=== PATIENT | female | born 1965 | race Caucasian/White ===

== ENCOUNTER 2025-07-06 06:25 | Day surgery (SDC) | payer OTHER, SELFPAY ==
[2025-07-06] VITALS (12 sets, daily range): BP systolic 107–145; BP diastolic 48–73; BMI 28.8
[2025-07-06] MEDS: LOW STRENGTH ASPIRIN 81 MG PO (07:22)
[2025-07-06] MEDS: NSS 236 ML IV (07:25)
--- NOTE | 2025-07-06 08:33 | ITS.CL.CATH ---
[employer] - Catheterization
Cardiac Catheterization
Procedure Report:
LEFT AND RIGHT HEART CATHETERIZATION
Date of Procedure: July 06, 2025
Referring: Festus Bingham MD
PROCEDURES:
1. Left heart catheterization, coronary angiogram.
2. Right heart catheterization
3. Moderate sedation.
INDICATION: Being worked up for ascending aortic repair
ACCESS: 1. We attempted right radial artery access however this was not successful. We then obtained right common femoral arterial access, 6 Canadian sheath, under ultrasound guidance using a micropuncture kit.
2. Right brachial vein, 6 Canadian sheath
HEMODYNAMICS : (mmHg)
RA (m) : 10
RV (s/d,m) : 42/6, 15
PA (s/d, m) : 42/18, 20
PCWP (m) : 17 with V waves up to 25
PA saturation: 70.0% on room air
AO saturation: 93.4% on room air
RA saturation: 69.4% on room air
Cardiac Output : 6.77 L/min by Dale calculation
Cardiac Index : 3.64 L/min/m-2 by Dale calculation
Systemic vascular resistance: 1099 dsc^(-5)
Pulmonary vascular resistance: 1.48 cobos unit
AO (s/d) : 140/69
LVEDP : 25
Invasive transaortic mean gradient of 31.4 mmHg with aortic valve area 1.25cm2 consistent with moderate aortic stenosis.
CORONARY FINDINGS
Dominance: Right
Left Main Trunk (LMT): Large caliber vessel that gives rise to the LAD and LCx branches and is free of angiographic disease.
Left Anterior Descending Artery (LAD): Large caliber vessel that gives off 1 major diagonal branch as it courses along the anterior inter-ventricular groove before wrapping around the cardiac apex. The LAD and its branches are free of angiographic
disease.
Left Circumflex Artery (LCx): Large caliber vessel that gives off 2 major obtuse marginal (OM) branches as it courses along the atrio-ventricular (AV) groove. The LCx and its branches are free of angiographic disease.
Right Coronary Artery (RCA): Large caliber dominant vessel that gives rise to the posterior descending artery (RPDA) and postero-lateral ventricular (RPLV) branches distally. The RCA and its branches are free of angiographic disease.
Femoral angiography: Femoral arteriotomy is noted to be above the bifurcation and below the inferior epigastric artery. There is minimal luminal irregularities in the visualized external iliac and femoral vessels.
SEDATION: 37 minutes of procedural sedation was utilized. IV Midazolam and IV Fentanyl were administered. An independent medical staff manager was present to assist with and help manage the patient's level of consciousness and physiologic status.
RADIATION SUMMARY: Fluoro Time (min): 5.7, Dose (mGy): 203.59, DAP (Gy.cm2) : 17
Closure Device: 6 Canadian Angio-Seal over the right common femoral arterial access with successful hemostasis. Manual pressure was held over the right brachial venous access site with successful hemostasis.
CONCLUSIONS
1. No obstructive coronary artery disease.
2. Mildly elevated right and left-sided filling pressures with normal cardiac output.
3. Invasive transaortic mean gradient of 31.4 mmHg with aortic valve area 1.25cm2 consistent with moderate aortic stenosis.
RECOMMENDATIONS
1. Bedrest per protocol.
2. Continue aggressive medical therapy and risk factor modification for secondary CAD prevention.
3. Hydrate with normal saline to mitigate the risk of contrast-induced acute kidney injury.
4. Follow-up with Drs. Mcghee and Zachery
Vivien Fierro MD, [facility]LY [facility], [facility]
Copy to: Festus Bingham MD and Philip Mcghee MD
[2025-07-06] MEDS: NSS 360 IV (10:52)
== END 2025-07-06 14:04 | disposition home or self-care (01) ==
LOC: CATH 06:25
PROVIDERS: ATTENDING PHYSICIAN Internal Medicine Interventional Cardiology; OTHER PHYSICIAN Internal Medicine Cardiovascular Disease
DX: I35.0 Nonrheumatic aortic (valve) stenosis (principal); I71.40 Abdominal aortic aneurysm, without rupture, unspecified; E78.5 Hyperlipidemia, unspecified; K21.9 Gastro-esophageal reflux disease without esophagitis; L93.0 Discoid lupus erythematosus; I48.0 Paroxysmal atrial fibrillation; F41.9 Anxiety disorder, unspecified
CPT/HCPCS: 93005; 93460; 99152; 99153; C1760; C1894; Q9967

== ENCOUNTER 2025-09-10 04:55 | Inpatient (IN) | payer OTHER, SELFPAY ==
[2025-08-31 12:50] LABS: Hematocrit 36.6 % (37.0-47.0); Hemoglobin 12.5 g/dL (12.0-16.0); Mean Corp Hgb Conc. 34.2 g/dL (33.0-37.0); Mean Corpuscular Volume 92.0 fL (81.0-99.0); Nucleated Red Blood Cells % 0 %; Platelet Count 220 10^3/uL (130-400); Red Cell Dist. Width 12.8 % (11.5-14.5)
[2025-08-31 13:00] LABS: Urine Character Clear (Clear)
[2025-08-31 13:04] LABS: INR 0.93; PT 12.8 Sec (11.4-14.6)
[2025-08-31 13:29] LABS: ALT (SGPT) 35 U/L (0-35); AST (SGOT) 40 U/L (14-36); Albumin 4.2 g/dl (3.5-5.0); Alkaline Phosphatase 92 U/L (38-126); Blood Urea Nitrogen 14 mg/dl (7-17); Calcium 9.3 mg/dl (8.4-10.2); Carbon Dioxide 30 mmol/L (22-30); Chloride 100 mmol/L (98-107); Glucose 85 mg/dl (70-99); Potassium 4.4 mmol/L (3.5-5.1); Sodium 136 mmol/L (135-145); Total Protein 6.5 g/dl (6.3-8.2); eGFR > 60.00
[2025-08-31 13:45] LABS: Glycohemoglobin (HgbA1c) 5.2 % (4.0-5.9)
[2025-08-31 13:46] LABS: Urine Squamous Cell 0-2 /LPF (Few)
[2025-08-31 13:47] LABS: Urine Red Blood Cell 0-2 /HPF (0-2); Urine White Cell 0-2 /HPF (0-5)
--- NOTE | 2025-08-31 14:26 | CM ---
Met with and Mrs. Rizo in [facility]. She states prior to admission she resides with her spouse in a two story home. She states has a full bathroom and bedroom on both levels. She states prior to admission she was independent with ambulation and
adls. She states she does not have any DME in the home. She states she has a prescription plan and uses mail order and [facility] when needed. Her spouse states he will be home to assist in her care if needed. The discharge plan is to return
home with her spouse and a home visit by the Transitional Care Nurse.
We reviewed pre-op and post-op routine. We reviewed the shower instructions. SHe has the soap, written instructions and the Cardiothoracic Surgery Educational Booklet. We also reviewed restrictions including sternal precautions and driving
restriction. We discussed a home visit by the Transitional Care Nor. We also discussed VNA Services if they are out the catchment area for the Transitional Care Nurse. She has selected [facility] if needed. The plan is for AVR on Wednesday,
September 10, 2025.
[2025-09-10] VITALS (15 sets, daily range): BP systolic 52–122; BP diastolic 33–75; BMI 28.9
[2025-09-10] MEDS: MAGNESIUM OXIDE 400 MG PO (05:25)
[2025-09-10] MEDS: PROTONIX 40 MG PO (05:25)
[2025-09-10] MEDS: BACTROBAN 2% OINTMENT 1 APPLIC NASAL ×2 (05:26→20:58)
--- NOTE | 2025-09-10 05:32 | PTCARENOTE ---
Patient admitted to CVICU. Admission questions asked. Vital signs obtained. Patient clipped and washed w/ CHG wipes. Medication reconciliation performed. Patient states she only takes 12.5mg metoprolol at home once per day. Medications
administered. Patients HR 58 CT SARA La aware. 12.5mg metoprolol ordered to be given instead of 25mg per CT SARA La. Awaiting CVOR.
[2025-09-10] MEDS: LOPRESSOR 12.5 MG PO (05:40)
--- NOTE | 2025-09-10 06:07 | W.CVOR.SURPR ---
CVOR Surgeon Immed Pre Op
-
I have examined this patient prior to performance of the scheduled procedure.
The patient's condition is unchanged from the time of the dictated/written History and
Physical and the patient is able to undergo the scheduled procedure.
[2025-09-10 07:44] LABS: ACT+ - POC 109 Seconds (82-134)
[2025-09-10 08:07] LABS: Urine Character Slightly Cloudy (Clear)
[2025-09-10 08:53] LABS: Urine Squamous Cell 0-2 /LPF (Few)
[2025-09-10 08:54] LABS: Urine Red Blood Cell 0-2 /HPF (0-2)
[2025-09-10 08:59] LABS: ACT+ - POC 842 Seconds (82-134)
--- NOTE | 2025-09-10 09:04 | CM ---
Reviewed chart. Mr. Barrett is in the operating room today. Prior to admission she resides with her spouse in a two story home. She has a full bathroom and bedroom on both levels. Prior to admission she was independent with ambulation and adls.
She does not have any DME in the home. She has a prescription plan and uses mail order and [facility] when needed. Her spouse states he will be home to assist in her care if needed. The discharge plan is to return home with her spouse and a home
visit by the Transitional Care Nurse.
[2025-09-10 09:27] LABS: B.E. - POC -1.5 mmol/L; Glucose - POC 99 mg/dl (70-99); HCO3 - POC 22 mmol/L (21-28); Hematocrit - POC 26 % PCV (37-47); Hemodilution- POC No; Hemoglobin Calculated - POC 9.0; Ionized Calcium - POC 1.15 mmol/L (1.15-1.33); Lactate - POC 0.51 mmol/L (0.36-0.75); O2 Saturation %Calculated-POC 99.8 % (94-98); PCO2 - POC 32 mmHg (35-48); PO2 - POC 231 mmHg (83-108); POC Comment PRE; Potassium - POC 3.8 mmol/L (3.5-5.1); Sodium - POC 133 mmol/L (136-145); Specimen Type - POC Arterial; pH - POC 7.45 (7.35-7.45)
[2025-09-10 09:47] LABS: ACT+ - POC 861 Seconds (82-134)
[2025-09-10 10:26] LABS: ACT+ - POC 757 Seconds (82-134)
[2025-09-10 10:32] LABS: B.E. - POC 1.8 mmol/L; Glucose - POC 84 mg/dl (70-99); HCO3 - POC 26 mmol/L (21-28); Hematocrit - POC 22 % PCV (37-47); Hemodilution- POC Yes; Hemoglobin Calculated - POC 7.6; Ionized Calcium - POC 0.97 mmol/L (1.15-1.33); Lactate - POC 0.71 mmol/L (0.36-0.75); O2 Saturation %Calculated-POC 99.9 % (94-98); PCO2 - POC 37 mmHg (35-48); PO2 - POC 295 mmHg (83-108); POC Comment CPB; Potassium - POC 4.7 mmol/L (3.5-5.1); Sodium - POC 135 mmol/L (136-145); Specimen Type - POC Arterial; pH - POC 7.45 (7.35-7.45)
[2025-09-10 10:53] LABS: B.E. - POC -0.1 mmol/L; Glucose - POC 161 mg/dl (70-99); HCO3 - POC 25 mmol/L (21-28); Hematocrit - POC 26 % PCV (37-47); Hemodilution- POC Yes; Hemoglobin Calculated - POC 8.7; Ionized Calcium - POC 0.98 mmol/L (1.15-1.33); Lactate - POC 0.90 mmol/L (0.36-0.75); O2 Saturation %Calculated-POC 99.9 % (94-98); PCO2 - POC 41 mmHg (35-48); PO2 - POC 287 mmHg (83-108); POC Comment CPB; Potassium - POC 4.2 mmol/L (3.5-5.1); Sodium - POC 138 mmol/L (136-145); Specimen Type - POC Arterial; pH - POC 7.39 (7.35-7.45)
[2025-09-10 11:07] LABS: ACT+ - POC 776 Seconds (82-134)
[2025-09-10 11:30] LABS: B.E. - POC 0.6 mmol/L; Glucose - POC 159 mg/dl (70-99); HCO3 - POC 25 mmol/L (21-28); Hematocrit - POC 27 % PCV (37-47); Hemodilution- POC Yes; Hemoglobin Calculated - POC 9.0; Ionized Calcium - POC 0.98 mmol/L (1.15-1.33); Lactate - POC 0.80 mmol/L (0.36-0.75); O2 Saturation %Calculated-POC 99.8 % (94-98); PCO2 - POC 39 mmHg (35-48); PO2 - POC 230 mmHg (83-108); POC Comment CPB; Potassium - POC 4.1 mmol/L (3.5-5.1); Sodium - POC 138 mmol/L (136-145); Specimen Type - POC Arterial; pH - POC 7.42 (7.35-7.45)
[2025-09-10 11:34] LABS: B.E. - POC 5.0 mmol/L; Glucose - POC 67 mg/dl (70-99); HCO3 - POC 27 mmol/L (21-28); Hematocrit - POC 18 % PCV (37-47); Hemodilution- POC Yes; Hemoglobin Calculated - POC 6.1; Ionized Calcium - POC 0.83 mmol/L (1.15-1.33); Lactate - POC < 0.30 mmol/L (0.36-0.75); O2 Saturation %Calculated-POC 100.0 % (94-98); PCO2 - POC 29 mmHg (35-48); PO2 - POC 521 mmHg (83-108); POC Comment CPB; Potassium - POC 5.7 mmol/L (3.5-5.1); Sodium - POC 137 mmol/L (136-145); Specimen Type - POC Arterial; pH - POC 7.59 (7.35-7.45)
[2025-09-10 11:42] LABS: ACT+ - POC 647 Seconds (82-134)
[2025-09-10 12:07] LABS: B.E. - POC 1.5 mmol/L; Glucose - POC 113 mg/dl (70-99); HCO3 - POC 25 mmol/L (21-28); Hematocrit - POC 25 % PCV (37-47); Hemodilution- POC Yes; Hemoglobin Calculated - POC 8.5; Ionized Calcium - POC 0.93 mmol/L (1.15-1.33); Lactate - POC 1.00 mmol/L (0.36-0.75); O2 Saturation %Calculated-POC 99.9 % (94-98); PCO2 - POC 35 mmHg (35-48); PO2 - POC 258 mmHg (83-108); POC Comment WARM; Potassium - POC 3.2 mmol/L (3.5-5.1); Sodium - POC 140 mmol/L (136-145); Specimen Type - POC Arterial; pH - POC 7.46 (7.35-7.45)
[2025-09-10 12:14] LABS: ACT+ - POC 134 Seconds (82-134)
[2025-09-10 13:20] LABS: B.E. - POC -4.0 mmol/L; Glucose - POC 77 mg/dl (70-99); HCO3 - POC 21 mmol/L (21-28); Hematocrit - POC 25 % PCV (37-47); Hemodilution- POC Yes; Hemoglobin Calculated - POC 8.4; Ionized Calcium - POC 1.23 mmol/L (1.15-1.33); Lactate - POC 1.10 mmol/L (0.36-0.75); O2 Saturation %Calculated-POC 100.0 % (94-98); PCO2 - POC 39 mmHg (35-48); PO2 - POC 489 mmHg (83-108); POC Comment POST; Potassium - POC 3.4 mmol/L (3.5-5.1); Sodium - POC 139 mmol/L (136-145); Specimen Type - POC Arterial; pH - POC 7.35 (7.35-7.45)
[2025-09-10] MEDS: NSS 500 IV (13:45)
[2025-09-10] MEDS: LR 250 ML IV ×3 (13:50→16:12)
[2025-09-10 14:04] LABS: Glucose - Point of Care 127 mg/dl (70-99)
--- NOTE | 2025-09-10 14:05 | CON.INTV ---
Consultation
Consultation Request
Date/Time Consultation Requested: 09/10/2025
Date/Time Consultation Performed: 09/10/2025
Medical History
-
Chief Complaint: Dyspnea
History of Present Illness:
Patient is a 60-year-old female with known history of aortic stenosis as well as ascending aortic dilation. Patient over time was noted to have progression of disease. More recent left and right heart catheterization showed no significant coronary
artery disease and moderate aortic stenosis. Echocardiogram was also reviewed which showed increasing ascending aortic dilation. Patient was evaluated by cardiothoracic surgery in outpatient and decision was made to proceed with surgical
intervention.
Patient has reported history of pericarditis in which was complicated by pericardial effusion as well as paroxysmal atrial fibrillation. Patient reportedly has been in normal sinus since and has not been on long-term anticoagulation.
Past medical history. Rheumatoid arthritis, gastroesophageal reflux disease, ascending aortic aneurysm, hyperlipidemia, history of pericarditis associated with pericardial effusion and transient paroxysmal atrial fibrillation in 2019, not on any
anticoagulation now. Moderate to severe aortic stenosis, mild reported recurrent regurgitation, trace to mild tricuspid regurgitation, history of anxiety, membranous nephropathy.
Past surgical history. Bunionectomy, right cataract and left cataract surgery.
Family history. Father had Alzheimer's. Mother had pulmonary fibrosis. No history of lung cancer reported.
Social history. No history of smoking or alcohol use. No illicit drug use.
Allergies / Home Medications
Allergies
Allergy/AdvReac Type Severity Reaction Status Date / Time
gluten Allergy gluten Verified 08/29/25 14:24
intolerance
NSAIDS (Non-Steroidal Allergy kidney Verified 08/29/25 14:16
Anti-Inflamma disease
Home Medications
�Medication �Instructions �Recorded �Confirmed �Last Taken �Type
aspirin 81 mg tablet,delayed 81 mg PO DAILY 12/13/20 09/10/25 09/09/25 08:00 History
release
atorvastatin 20 mg tablet 20 mg PO HS 12/13/20 09/10/25 09/06/25 19:00 History
cholecalciferol (vitamin D3) 50 2,000 units PO DAILY 12/13/20 09/10/25 09/02/25 08:00 History
mcg (2,000 unit) tablet
colchicine 0.6 mg tablet 0.6 mg PO BID 12/13/20 09/10/25 09/09/25 20:30 History
hydroxychloroquine 200 mg tablet 200 mg PO BID 12/13/20 09/10/25 09/09/25 20:30 History
belimumab 200 mg/mL subcutaneous 200 mg SC QMONTH 07/06/25 09/10/25 07/25/25 History
syringe (Benlysta)
folic acid 1 mg tablet 1 mg PO HS 07/06/25 09/10/25 09/02/25 19:00 History
metoprolol tartrate 25 mg tablet 6.25 mg PO HS 07/06/25 09/10/25 09/09/25 20:30 History
sertraline 100 mg tablet 100 mg PO HS 07/06/25 09/10/25 09/09/25 20:30 History
Review of Systems
-
Unable to Obtain full review of systems at this time due to: Patient Intubation
Vitals / Labs / Diagnostic Testing
Vital Signs
Temp Pulse Resp BP Pulse Ox
96.5 F L 63 12 122/59 100
09/10/25 13:45 09/10/25 13:55 09/10/25 13:55 09/10/25 05:08 09/10/25 13:55
Diagnostic Testing:
Physical Exam
-
HEENT: Normocephalic
Cardiovascular: S1/S2 and Murmur (Soft systolic murmur)
Respiratory: Clear
GI: Soft and Non Distended
Neurology: Awake
Skin: Warm
General: Comfortable
Assessment
-
Patient is a 60-year-old female with known moderate to severe aortic stenosis with aneurysmal dilation of ascending aorta, s/p AVR, aortic root replacement and distal aortic wrap POD # 0
Titrate off pressors per protocol, currently on Levophed @ 10. MAP 66, CI 1.5. CVP @ 8. S/p 750 ml LR bolus.
ECHO reviewed with normal EF
PA catheter readings reviewed, , mean 20
Management of chest tubes per primary service
Intubated/sedated, initiate SAT when able, currently on Precedex
Pain control
RASS goal of 0 to -1
Intubated for procedure, SBT trial when patient able to spontaneously breath
Current vent settings: SIMV 550/14/40%/5
AB.42/31/165
CXR with mild basilar atelectasis
Extubate per protocol
Maintain supplement oxygen as needed
No prior history of pulmonary disease
Can add nebulizers if needed
Aspiration precautions
Encouraged incentive spirometry, OOB/ambulation/early mobility
Advance diet as tolerated following extubation
GI prophylaxis: Protonix
Monitor critical I/O's
Schrader/chest tube output
Hb/platelets postoperatively, drift. 125 > 9.7. Platelets 120K
Trend CBC for now
Can transfuse if indicated for Hb <7, plt <50 in surgical patients
DVT prophylaxis including SCDs
Insulin protocol initiated and ongoing
Transition to SQ/off as indicated per team
Other medical diagnoses:
- 2-3 mm pulmonary nodule. No smoking history. No further work up needed.
Critical Care time 65 mins -- The patient is admitted for acute critical illness for the treatment of vital organ failure and/or prevention of further life-threatening conditions. Total care includes time spent in review of history, physical exam,
medications, hemodynamic/ventilator parameters, laboratory data, imaging and discussion with house staff, pharmacy, respiratory therapy, soaping machine back tender, and nursing
Data:
CXR 08/2025: Endotracheal tube tip terminates 2 mm above the fco. Consider slight retraction.
There is a likely small left-sided pleural effusion with left basilar atelectasis. No pneumothorax.
LHC & RHC 06/2025: 1. No obstructive coronary artery disease.
2. Mildly elevated right and left-sided filling pressures with normal cardiac output.
3. Invasive transaortic mean gradient of 31.4 mmHg with aortic valve area 1.25cm2 consistent with moderate aortic stenosis.
RHC: mPA 20 with PCWP 17 goes up to 25 with v wave. CI 3.6, PVR 1.4
ECHO 02/2025: Moderate aortic dilatation with other chamber sizes normal.
Normal left and right ventricular systolic function.
Normal diastolic function.
Moderate to moderately severe aortic stenosis with mild aortic insufficiency.
Mild to moderate mitral regurgitation.
Trace to mild tricuspid regurgitation with no evidence of pulmonary
hypertension.
Compared to report of echo Doppler from 02/17/2024 the degree of aortic stenosis
has increased with no other significant changes.
CT Coronary 11/2020: 2-3 mm subpleural nodule within the anterior right upper
lobe. If the patient is elevated risk for lung cancer, consider
a follow-up CT of the chest in one year per Fleischner
guidelines.
2. Nonspecific band-like opacities within the left lower lobe,
likely atelectasis or scarring.
3. Ectasia of the ascending aorta measuring up to 4.4 cm in
diameter.
[2025-09-10 14:16] LABS: B.E. -3.7 mmol/L; HCO3 20.1 mmol/L (21-28); O2 Saturation % 100.0 % (94-98); PCO2 31 mmHg (32-35); PO2 165 mmHg (83-108); Potassium 4.2 mMOL/L (3.5-5.1); Sodium 136 mMOL/L (136-145)
[2025-09-10 14:17] LABS: Hematocrit 27.0 % (37.0-47.0); Hemoglobin 9.1 g/dL (12.0-16.0); Platelet Count 120 10^3/uL (130-400)
[2025-09-10 14:25] LABS: INR 1.62; PT 19.4 Sec (11.4-14.6)
[2025-09-10 14:26] LABS: APTT 39.9 Sec (23.4-35.0)
[2025-09-10] MEDS: CALCIUM GLUCONATE 100 IV ×2 (14:30→17:25)
[2025-09-10] MEDS: NEURONTIN PO ×2 (14:31→23:01)
[2025-09-10] MEDS: ANCEF 10 IV ×2 (14:31)
--- NOTE | 2025-09-10 14:33 | PTCARENOTE ---
CXR done at bedside; RT adjusted ETT from 24 cm to 22 cm as per ERINN Gr; ETT secured at right lip
[2025-09-10] MEDS: TYLENOL PO ×2 (14:36→23:00)
--- NOTE | 2025-09-10 14:44 | W.PN.UPDATE ---
Update Note
Progress Note Update
60 year old female electively admitted 09/10/25 for AVR, ascending aorta replacemnt due to ascending aortic aneurysm (4.4cm) and mod-sev
IV fluids: 1500
U.O.:� 1100
Blood:� 2PRBC
Wires:� bipolar V-wire
Drips: Levo @ 4, Insulin, Precedex
�
NEURO: sedated, pupils +2mm B/L
RESP: #8OT @24cm> 550/40%/14/. Lungs clear B/L. 2 mediastinal (5cc on arrival) and separate mediastinal (5cc on arrival) chest tubes to -20cm suction. Sanguineous drainage
CV: RRR +S1, S2, no S3, no�rub, no murmur. Aquacell to median sternotomy. RIJ w/[place] locked @ 40cm. PA 16/09; CVP 8
ABD: obese, , soft, no BS
EXT: no edema, +2/4 DP pulses B/L, no femoral bruit, left radial A-line intact
: Schrader with clear yellow urine
�
A/P: POD #0 s/p AVR #27mm Inspiris, Ascending aorta replacement #30mm graft and wrap
ANAYELI: report pending (EF 55-60% on TTE)
- wean and extubate
- will need instruction regarding antibiotic prophylaxis for dental and invasive procedures
- insulin x 48h
- continue Lipitor/ASA
�
# acute surgical blood loss anemia-expected
- trend CBC
�
�# Lupus-stable
- Home meds:
- Benlysta 200mg monthly
- Hydroxychloroquine 200mg BID
# Anxiety
- home meds:
- Sertraline 100mg HS
# Gout
- home meds:
- Colchine 0.6mg BID
[2025-09-10 14:46] LABS: Blood Urea Nitrogen 12 mg/dl (7-17); Estimated Creatinine Clearance 102 ml/min; Glucose 113 mg/dl (70-99); Magnesium 3.1 mg/dl (1.6-2.3)
--- NOTE | 2025-09-10 14:48 | PTCARENOTE ---
Patient received from CVOR at 1345; Sedated and intubated; SR with prolonged QT and SB on monitor; VSS; Distant heart sounds; Epicardial V-wire present with temporary pacemaker turned off; +1 DP and radial pulses present; Lungs diminished
throughout; ETT size 8 positioned and secured at 24 cm right lip - moved to 22 cm by RT as per ERINN Gr; Ventilator settings SIMV 14/500/5/5 FiO2 40%; CTx3 to -20 cm wall suction draining bloody drainage - no air leak, tidaling, or crepitus
noted; Hypoactive BS; Schrader catheter in place draining clear, yellow urine; Sternal midline incision covered with Aquacel dressing - small amount of bloody drainage marked; Left upper lip with scab [employer]IVER; Left radial A-line in place, [place]-jaron present
in RIJ Cordis at 40 cm - all lines zeroed and leveled; PIVx1 - #20 right hand; Levo, insulin, and precedex infusing - see nursing flowsheets for further details; LR bolus given x2; iCal repleted x1; ERINN Gr notified regarding CI <2; see
nursing documentation for further details.
CO: 2.44
CI: 1.31
SVR: 2,523
[2025-09-10 15:08] LABS: Glucose - Point of Care 152 mg/dl (70-99)
--- NOTE | 2025-09-10 15:22 | PTCARENOTE ---
CXR done at bedside; RT adjusted ETT from 22 cm to 21 cm by ERINN Gr; ETT secured at right lip
--- NOTE | 2025-09-10 15:28 | PTCARENOTE ---
CXR done at bedside; ETT adjusted from 22 cm to 21 cm by ERINN Gr; ETT secured at right lip
[2025-09-10] MEDS: PACERONE PO ×2 (15:50→23:20)
[2025-09-10 15:58] LABS: Glucose - Point of Care 122 mg/dl (70-99)
--- NOTE | 2025-09-10 16:23 | W.IMMPOSTOP ---
Addendum entered and electronically signed by Festus Bingham MD 09/10/25 17:24:
[id number]
Original Note:
Surgical Immed Post Op Note
-
CARDIAC SURGERY OPERATIVE NOTE:
Preoperative Dx:
Hwcocipi-za-kogcum aortic stenosis (P/M: 46/32)
Mbdtkemf-jb-bjkgun aortic insufficiency
Rwdp-fd-jvktyqfn mitral regurgitation
Hisim-ah-imsm tricuspid regurgitation
Ascending aortic aneurysm (max ~4.7cm)
Atypical CP
Hx of idiopathic pericarditis - w/ isolated episode of PAF & effusion
Rheumatoid arthritis
Lupus
Hyperlipidemia
Membranous glomerulonephritis
Irritable bowel syndrome
Anxiety
FHx of CAD - no sig CAD on preoperative cath
Postoperative Dx:
Same
Procedures:
1) Median sternotomy
2) Lysis of pericardial adhesions (blunt, sharp, electrocautery aided)
3) AVR (#27 Inspiris Resilia)
4) Ascending aortic replacement (28mm Hemashield Graft)
5) Distal ascending aortic wrap
Surgeon:
Festus Bingham M.D.
Assistants:
Claire WisdomA.-C.; cashier assistant throughout, eyhxwf-anrc-bqwy closure
Rachel Rosales P.A.-C.; idslzx-aoaa-mniz sternotomy closure
Anesthesia:
Shahbaz Holt M.D. and Ravindra SaulRDaniloN.Tereza
Perfusion:
Willy Chua, C.C.P. and Erin Angulo C.C.P.
XC: 114min, CPB: 157min
Findings:
Pericardium was not thickened/pathologic in appearance. However, there were significant circumferential pericardial adhesions. The majority of the adhesions were not dense in character. MAGED took approximately 30 min using a combination of sharp,
blunt, and electrocautery aided dissection. Given the circumferential nature of these adhesions, I opted to forgo the encompass MAZE procedure and ELAA.
Her aorta was aneurysmal and extremely thin walled w/ poor tissue strength
Her stockbridge AV was bicuspid w/ fusion of the RIGHT and LEFT cusps (AMY 1). The valve had moderate leaflet calcifications which extended to the annulus circumferentially, but most pronounce on the NON- and LEFT- cusps.
AVR performed w/ placement of #27 Quiros Inspiris Resilia valve secured w/ 17 interrupted, pledgetted valve sutures & CorKnots - I was very pleased with the visual appearance of the valve on the aortic annulus. The valve posts were rotated
approximately 20 degrees to assure they were from the LM and RM coronary ostia. The LM was approximately 10mm from the aortic annulus, the RM was quite low (estimated 5-7mm from the aortic annulus). Both coronary ostia were gently probed
w/ a right-angle w/ the valve in position.
Her ascending aortic was replaced w/ a 28mm Hemashield graft from the level of the STJ to the cross-clamp. Both proximal and distal ends were reinforced with felt strips. Internally the most posterior aspects of both the proximal (4) and distal
anastomosis (2) were further reinforced w/ interrupted 4-0 pledgetted prolene sutures. Preveleak was placed on both suture lines.
After decannulation, the area of her stockbridge ascending aorta where cannulation and cross-clamp application had been performed were wrapped w/ a 28mm Hemashield graft secured in multiple locations w/ interrupted 4-0 pledgetted prolene sutures.
Pt. w/ normal biventricular function, well-seated AVR w/ trace PVL (small, smaller post-protamine), unchanged xode-oy-izfyscyy MR, isoelectric sinus
Implants:
Quiros [employer], INSPIRIS RESILIA AVR, 27mm, Model [id number], SN: [id number]
Hemashield [place] 28mm graft, LOT [id number], SN: [id number]
Epicardial bipolar V-wire x 1 (not sutured)
CT x 3 (mediastinal)
Sternal wires x 7
Sternal 'X' plate w/ 8 - 14mm screws
Sternal 'Square' plate w/ 4 - 10mm screws
Complications:
None
Transfusions:
1U PRBC
Condition:
Stable/guarded to CVICU
[2025-09-10] MEDS: ALBUMIN 5% 250 IV ×2 (16:26→18:13)
[2025-09-10 17:08] LABS: Glucose - Point of Care 125 mg/dl (70-99)
[2025-09-10 17:20] LABS: B.E. -3.2 mmol/L; HCO3 20.8 mmol/L (21-28); O2 Saturation % 100.0 % (94-98); PCO2 32 mmHg (32-35); PO2 138 mmHg (83-108); Potassium 4.2 mMOL/L (3.5-5.1); Sodium 136 mMOL/L (136-145)
[2025-09-10 17:29] LABS: Hematocrit 24.1 % (37.0-47.0); Hemoglobin 8.2 g/dL (12.0-16.0); Platelet Count 115 10^3/uL (130-400)
[2025-09-10] MEDS: SODIUM BICARBONATE 50 MEQ IV (17:37)
[2025-09-10 18:05] LABS: Glucose - Point of Care 102 mg/dl (70-99)
--- NOTE | 2025-09-10 18:33 | PTCARENOTE ---
Levophed infusion increased due to hypotension - CVNP Rose Gr notified and aware; LR bolus given x2; Albumin 5% ordered and given; ABG repeated - iCal repeated x1 and 1 amp sodium bicarb ordered and given; Patient's BP very labile; Albumin 5%
ordered and a 2nd time; Patient's Levophed infusion now able to be weaned - see nursing flowsheets for further information; Patient remains intubated but moving all extremities and able to follow commands
CO: 3.75
CI: 2.02
SVR: 1,407
[2025-09-10] MEDS: ASPIRIN 300 MG RECTAL (19:19)
[2025-09-10 20:10] LABS: B.E. 0.4 mmol/L; HCO3 23.6 mmol/L (21-28); O2 Saturation % 100.0 % (94-98); PCO2 31 mmHg (32-35); PO2 141 mmHg (83-108); Potassium 4.1 mMOL/L (3.5-5.1)
[2025-09-10 20:17] LABS: Glucose - Point of Care 102 mg/dl (70-99)
--- NOTE | 2025-09-10 20:30 | PTCARENOTE ---
Patient received resting in bed. Intubated/Ventilator. #8.0 ETT 21cm Right lip. Small abrasion/scabbed area noted on left upper lip. SIMV ventilator settings: Rate 14 TV 550 PS 5 PEEP 5 FiO2 40%. SpO2 100%. Patient tolerating ETT/Ventilator.
Minimal clear to whitish secretions. Mouth care provided. ABG and Mixed Venous sent. Patient awake and alert during periods of care. Dozing intermittently. Patient able to nod head appropriately to simple verbal commands and mouth words
appropriately. Patient able to move all extremities without difficulty. Calm and cooperative with care. Lungs diminished. No adventitious breath sounds noted. Three Mediastinal chest tubes - Intact and patent - 20 ml red drainage - No air leak
- Dressing intact. Sinus Rhythm. Heart rate 60. Levophed gtt. V-Wire. Patient with no c/o chest pain, pressure or discomfort. Abdomen soft, nontender. Hypoactive bowel sounds. Schrader catheter - Temperature sensing - Yellow urine - Outputs as
documented. Trace generalized edema. Positive, palpable pulses. Right [place]. Cordis with [place] Camacho catheter. Left radial arterial line. A-Line, PAP, CVP to pressure bag/saline flush - Flush without difficulty - Zeroed and calibrated - Waveforms
within normal limits. C.O. 3.52 C.I. 1.89 SVR 1431 PAP 23/12 (16) CVP 7. Sternal dressing intact. Patient with no c/o back or flank pain. Assessment as documented.
[2025-09-10] MEDS: SENOKOT PO (20:57)
[2025-09-10] MEDS: ANCEF 5 IV (21:00)
[2025-09-10] MEDS: LEVOPHED 250 IV (21:44)
[2025-09-10 21:53] LABS: Glucose - Point of Care 108 mg/dl (70-99)
[2025-09-10 22:07] LABS: B.E. -1.7 mmol/L; HCO3 22.9 mmol/L (21-28); O2 Saturation % 100.0 % (94-98); PCO2 37 mmHg (32-35); PO2 145 mmHg (83-108)
--- NOTE | 2025-09-10 22:25 | RESPNOTE ---
PT was placed on a CPAP wean with PS and is tolerating well. She is taking deep breaths and staying awake. An ABG sample was obtained on the CPAP and was acceptable for extubation. PT was suctioned before and after and voiced her name. PT
performed several I/S maneuvers, highest being 1,000 mls.
[2025-09-10] MEDS: LIPITOR 20 MG PO (23:27)
[2025-09-10] MEDS: OFIRMEV 100 IV (23:28)
--- NOTE | 2025-09-10 23:30 | PTCARENOTE ---
CPAP wean started. C.O. 3.88 C.I. 2.09 SVR 1360 PAP 22/10 (15) CVP 6 Patient extubated at 2225 without difficulty. O2 at 6L via NC. SpO2 100%. Minimal secretions. Mouth care provided. Dr. Bingham arrived and spoke with patient. One unit
of PRBC's ordered and started without difficulty - No transfusional reaction noted. Levophed gtt titrated to off. Assessment/Interventions as documented.
[2025-09-11] VITALS (40 sets, daily range): BP systolic 72–128; BP diastolic 41–73; PULSE 72; O2SAT 98; BMI 30.5
[2025-09-11 00:18] LABS: Glucose - Point of Care 79 mg/dl (70-99)
--- NOTE | 2025-09-11 00:29 | W.PN.CT ---
Today's Communication / Plan
-
-pod #1
-extubated uneventfully @ 10:25 pm
-no issues overnight
-got total 1000 LR, 500 Albumin, 3 pRBCs
-mvO2 is 68.9, CI 2.34, CO 4.35 , SVR 1287. Drips: on insulin. Levo is off
-CT outputs: 2 meds 100/275, 1 med 90/170 in 12/24 hrs
-sbp 90-[address] Bingham. Liberate 90-130
-wean off Levo, then deline
-current meds (ASA, Lipitor, BB, Amio, Feosol, Neurontin, Protonix)
-encourage IS, OOB
Assessment / Plan
-
- Obfvpoie-mq-fyzycn / mod-severe AI/ Ascending aortic aneurysm (max ~4.7cm)- s/p AVR (#27 Inspiris Resilia); Ascending aortic replacement (28mm Hemashield Graft); Distal ascending aortic wrap; Lysis of pericardial adhesions (blunt, sharp,
electrocautery aided) by Dr. Bingham on 09/10/25, pod #1
- Intraop ANAYELI: normal biventricular function, well-seated AVR w/ trace PVL (small, smaller post-protamine), unchanged lslj-bq-jrgsjyvi MR, isoelectric sinus
- Ggiinxxl-ev-kspsta aortic stenosis (P/M: 46/32)/ Kgkbxsfo-jk-priecn aortic insufficiency
- Pyka-ic-jphpbate mitral regurgitation
- Gbszw-bf-swdz tricuspid regurgitation
- Ascending aortic aneurysm (max ~4.7cm)
- Atypical CP
- Hx of idiopathic pericarditis - w/ isolated episode of PAF & effusion
- Rheumatoid arthritis
- Lupus
- Hyperlipidemia
- Membranous glomerulonephritis
- Irritable bowel syndrome
- Anxiety
- FHx of CAD - no sig CAD on preoperative cath
- Acute postop blood loss anemia - s/p 3 pRBCs
- Acute postop thrombocytopenia
- Acute postop atelectasis
- Acute postop hypovolemia with subsequent hypervolemia
Discussed patient care with: Nursing and Care Team
Subjective
-
Date of Service: September 11, 2025
Objective Data
-
PT 19.4 Sec (11.4-14.6) H 09/10/25 12:56
INR 1.62 09/10/25 12:56
APTT 39.9 Sec (23.4-35.0) H 09/10/25 12:56
Vital Signs
Vital Signs
Temp Pulse Resp BP Pulse Ox
99.0 F 57 15 97/62 100
09/11/25 00:00 09/11/25 00:15 09/11/25 00:15 09/11/25 00:00 09/11/25 00:15
CT Intake/Output/Weight
09/10/25 09/10/25 09/11/25
06:59 18:59 06:59
Intake Total 2225.2 / 2780.8 555.6 / 2780.8
Output Total 845 / 1210 365 / 1210
Balance 1380.2 / 1570.8 190.6 / 1570.8
SaO2: 100
Physical Exam
-
General: Awake and AOx3
Cardiovascular: Regular rate & rhythm, No Murmurs and No Rub
Respiratory: Decreased Breath Sounds
Sternum: Stable
Incision: Clean, Dry and Intact
Extremities: Edema +1 (DPs 1+ b/l)
Abdomen: soft, nontender, nondistended, + decreased bowel sounds
Data Reviewed
-
Lab Results: Results Reviewed
Medications: Active Meds Reviewed
Chest X-Ray: Report Reviewed and Image Reviewed
ECG: Report Reviewed and Image Reviewed
[2025-09-11 01:03] LABS: Glucose - Point of Care 98 mg/dl (70-99)
[2025-09-11 02:16] LABS: Glucose - Point of Care 104 mg/dl (70-99)
--- NOTE | 2025-09-11 02:30 | PTCARENOTE ---
Patient A+A+Ox3. No neurological deficits noted. No c/o headache, dizziness or lightheadedness. Patient tolerating sips of water. No c/o nausea. No vomiting. Pain management with IV Ofirmev x1. Levophed gtt off. Insulin gtt. C.O. 4.52 C.I.
2.43 SVR 1185 PAP 22/8 (13) CVP 6. Patient sleeping intermittently. Assessment/Interventions as documented.
[2025-09-11 03:25] LABS: Glucose - Point of Care 101 mg/dl (70-99)
[2025-09-11 04:16] LABS: Glucose - Point of Care 106 mg/dl (70-99)
[2025-09-11 04:21] LABS: Blood Urea Nitrogen 18 mg/dl (7-17); Calcium 7.6 mg/dl (8.4-10.2); Carbon Dioxide 27 mmol/L (22-30); Chloride 110 mmol/L (98-107); Estimated Creatinine Clearance 88 ml/min; Glucose 93 mg/dl (70-99); Magnesium 2.2 mg/dl (1.6-2.3); Potassium 4.3 mmol/L (3.5-5.1); Sodium 139 mmol/L (135-145); eGFR > 60.00
[2025-09-11] MEDS: ROXICODONE 2.5 MG PO ×2 (04:40→19:20)
[2025-09-11] MEDS: CALCIUM GLUCONATE 100 IV ×2 (04:40→12:15)
[2025-09-11] MEDS: ANCEF 5 IV ×2 (04:40→12:15)
[2025-09-11 04:45] LABS: Platelet Count 80 10^3/uL (130-400)
[2025-09-11 04:46] LABS: Hematocrit 22.9 % (37.0-47.0); Hemoglobin 7.8 g/dL (12.0-16.0); Mean Corp Hgb Conc. 34.1 g/dL (33.0-37.0); Mean Corpuscular Volume 92.3 fL (81.0-99.0); Red Cell Dist. Width 13.8 % (11.5-14.5)
[2025-09-11 05:52] LABS: Glucose - Point of Care 90 mg/dl (70-99)
[2025-09-11] MEDS: TYLENOL PO (05:53)
--- NOTE | 2025-09-11 06:35 | PTCARENOTE ---
Patient A+A+Ox3. No neurological deficits noted. No c/o headache, dizziness or lightheadedness. C.O. 4.35 C.I. 2.34 SVR 1287 PAP 14/06 (13) CVP 6. AM labs collected and sent. Mixed Venous sent. EKG completed. Portable CXR completed. [place] catheter discontinued. Patient given CHG bath, linens changed, mouth care provided, chest tube dressing changed and Schrader catheter care provided. Ionized Calcium 1.10 - Calcium Gluconate 2,000mg/100ml IV administered. Schrader catheter removed
without difficulty - Due to void at 12:30pm. Patient given Roxicodone 2.5 mg PO for pain management. Assessment/Interventions as documented.
--- NOTE | 2025-09-11 07:13 | W.PN.INTV ---
Today's Communication / Plan
Recommendations
- Transition insulin infusion per protocol
- Wean oxygen as tolerated
- Incentive spirometry
- Assistant Account Executive team will sign off once patient is transferred out of CVICU
Assessment
-
Patient is a 60-year-old female with known moderate to severe aortic stenosis with aneurysmal dilation of ascending aorta, s/p AVR, aortic root replacement and distal aortic wrap POD # 1
Titrated off pressors. Current MAP of 83, not requiring any pressor support
ECHO reviewed with normal EF
Management of chest tubes per primary service
Patient extubated, currently saturating 99% on 2 L supplemental oxygen
CXR with mild basilar atelectasis, left sided.
Maintain supplement oxygen as needed
No prior history of pulmonary disease
Can add nebulizers if needed
Aspiration precautions
Encouraged incentive spirometry, OOB/ambulation/early mobility
Advance diet as tolerated following extubation
GI prophylaxis: Protonix
Monitor critical I/O's
Schrader/chest tube output
Hb/platelets postoperatively, drift. 125 > 9.7 > 7.8. Platelets 120K > 80K
Trend CBC for now
Can transfuse if indicated for Hb <7, plt <50 in surgical patients
DVT prophylaxis including SCDs
Insulin protocol initiated and ongoing
Transition to SQ/off as indicated per team
Other medical diagnoses:
- 2-3 mm pulmonary nodule. No smoking history. No further work up needed.
Critical Care time 45 mins -- The patient is admitted for acute critical illness for the treatment of vital organ failure and/or prevention of further life-threatening conditions. Total care includes time spent in review of history, physical exam,
medications, hemodynamic/ventilator parameters, laboratory data, imaging and discussion with house staff, pharmacy, respiratory therapy, analytical research program manager, and nursing
Data:
CXR 08/2025: Endotracheal tube tip terminates 2 mm above the fco. Consider slight retraction.
There is a likely small left-sided pleural effusion with left basilar atelectasis. No pneumothorax.
LHC & RHC 06/2025: 1. No obstructive coronary artery disease.
2. Mildly elevated right and left-sided filling pressures with normal cardiac output.
3. Invasive transaortic mean gradient of 31.4 mmHg with aortic valve area 1.25cm2 consistent with moderate aortic stenosis.
RHC: mPA 20 with PCWP 17 goes up to 25 with v wave. CI 3.6, PVR 1.4
ECHO 02/2025: Moderate aortic dilatation with other chamber sizes normal.
Normal left and right ventricular systolic function.
Normal diastolic function.
Moderate to moderately severe aortic stenosis with mild aortic insufficiency.
Mild to moderate mitral regurgitation.
Trace to mild tricuspid regurgitation with no evidence of pulmonary
hypertension.
Compared to report of echo Doppler from 02/17/2024 the degree of aortic stenosis
has increased with no other significant changes.
CT Coronary 11/2020: 2-3 mm subpleural nodule within the anterior right upper
lobe. If the patient is elevated risk for lung cancer, consider
a follow-up CT of the chest in one year per [facility]
guidelines.
2. Nonspecific band-like opacities within the left lower lobe,
likely atelectasis or scarring.
3. Ectasia of the ascending aorta measuring up to 4.4 cm in
diameter.
Subjective Dataa
Subjective Data
Date of Service:
Date of Service: September 11, 2025
Subjective:
Patient comfortably lying in bed in no acute distress.
Review of Systems
Genitourinary: Other (No new symptoms reported)
Objective Data
Data Reviewed
Vital Signs / I&O / Oxygen:
Vital Signs
Temp Pulse Resp BP Pulse Ox
98.9 F 67 15 104/57 99
09/11/25 05:00 09/11/25 07:05 09/11/25 07:05 09/11/25 07:00 09/11/25 07:05
Intake and Output
09/10/25 09/11/25 09/12/25
06:59 06:59 06:59
Intake Total 3175.1 / 3175.1
Output Total 1535 / 1535
Balance 1640.1 / 1640.1
SaO2 [CPAP] 100
SaO2 [SIMV] 100
SaO2 99
Nasal Cannula flow liters per 2
minute
Physical Exam
General: Comfortable
HEENT: Normocephalic
Cardiovascular: S1-S2 and Peripheral Edema (Trace pedal edema)
Respiratory: Clear
GI: Soft and Non Distended
Neurology: Awake and Alert
Skin: Warm
Labs/Micro/Reports
Lab Data
09/11/25 03:43
09/11/25 03:43
Laboratory Results
09/10/25 09/10/25 09/10/25
12:56 17:12 20:00
PT 19.4 H
INR 1.62
APTT 39.9 H
pH 7.42 7.42 7.49 H
pCO2 31 L 32 31 L
pO2 165 H 138 H 141 H
HCO3 20.1 L 20.8 L 23.6
O2 Delivery Level
09/10/25
21:59
PT
INR
APTT
pH 7.40
pCO2 37 H
pO2 145 H
HCO3 22.9
O2 Delivery Level
--- NOTE | 2025-09-11 08:00 | PTCARENOTE ---
pt received from previous RN, oriented, in bed. SR on the monitor, HR 60-70s. V wires in place, box off. SBP 100-120s. palpable pulses, trace hand/LE edema. pt on 2LNC, 97-99% POX. lungs diminished in bases. IS encouraged. CT x3, no air leak or
crepitus noted. pt abdomen s/n, denies n/v. +BS. tolerating clears. DTV post carpenter removal. sternal aquacel intact, old drainage. chest tube dressing intact. RIJ cordis maintained. L radial [place] flushed, zeroed, and calibrated. PIV. insulin gtt
running as ordered. see worklist for VS, I&O, and assessment.
[2025-09-11 08:07] LABS: Glucose - Point of Care 94 mg/dl (70-99)
[2025-09-11] MEDS: LASIX 40 MG IV ×2 (08:32→15:23)
[2025-09-11] MEDS: PACERONE 200 MG PO ×3 (08:33→22:19)
[2025-09-11] MEDS: LOPRESSOR 12.5 MG PO ×2 (08:33→19:22)
[2025-09-11] MEDS: FEOSOL 325 MG PO (08:33)
[2025-09-11] MEDS: VITAMIN C 500 MG PO (08:33)
[2025-09-11] MEDS: LIDOCAINE 4% PATCH 1 PATCH TOPICAL (08:33)
[2025-09-11] MEDS: NEURONTIN 100 MG PO ×3 (08:33→22:19)
[2025-09-11] MEDS: SENOKOT 8.6 MG PO ×2 (08:33→19:22)
[2025-09-11] MEDS: BACTROBAN 2% OINTMENT 1 APPLIC NASAL ×2 (08:34→19:23)
[2025-09-11] MEDS: LOW STRENGTH ASPIRIN PO (08:34)
[2025-09-11] MEDS: PROTONIX 40 MG PO (08:34)
--- NOTE | 2025-09-11 08:42 | CON.CAR ---
Consultation
Consultation Request
Date/Time Consultation Requested: Sep 10 1:00 pm
Date/Time Consultation Performed: Sep 11 8:00 am
Requesting Provider: CT surgery
Performing Provider: Xavi Soto
Reason for Consultation: AVR
Medical History
-
Chief Complaint: Here for elective aortic valve replacement
History of Present Illness:
60-year-old female with known history of aortic stenosis as well as ascending aortic dilation who has had progression of disease. She had a left heart cath that showed no significant CAD and moderate aortic stenosis. In light of echocardiogram
findings she was seen at as a patient in the cardiothoracic surgery. She was then deemed necessary for aortic valve replacement with ascending aorta replacement.
Past Medical History
Past Medical History: Other ( Rheumatoid arthritis, gastroesophageal reflux disease, ascending aortic aneurysm, hyperlipidemia, history of pericarditis associated with pericardial effusion and transient paroxysmal atrial fibrillation in 2019, not on
any anticoagulation now. Moderate to severe aortic stenosis)
Past Surgical History: Other (Bunionectomy, right cataract and left cataract surgery.)
Social History
Tobacco: Non-Smoker
Alcohol: None
Living: With Family
Family History
Family History: Reviewed & Not Pertinent
Allergies / Home Medications
Allergy/AdvReac Type Severity Reaction Status Date / Time
gluten Allergy gluten Verified 08/29/25 14:24
intolerance
NSAIDS (Non-Steroidal Allergy kidney Verified 08/29/25 14:16
Anti-Inflamma disease
�Medication �Instructions �Recorded �Confirmed �Type
aspirin 81 mg tablet,delayed 81 mg PO DAILY Blood Clot 12/13/20 09/10/25 History
release Prevention/Tx
atorvastatin 20 mg tablet 20 mg PO HS High Cholesterol 12/13/20 09/10/25 History
cholecalciferol (vitamin D3) 50 2,000 units PO DAILY Supplement 12/13/20 09/10/25 History
mcg (2,000 unit) tablet
colchicine 0.6 mg tablet 0.6 mg PO BID Gout 12/13/20 09/10/25 History
hydroxychloroquine 200 mg tablet 200 mg PO BID lupus 12/13/20 09/10/25 History
belimumab 200 mg/mL subcutaneous 200 mg SC QMONTH Lupus 07/06/25 09/10/25 History
syringe (Benlysta)
folic acid 1 mg tablet 1 mg PO HS Supplement 07/06/25 09/10/25 History
metoprolol tartrate 25 mg tablet 6.25 mg PO HS Heart 07/06/25 09/10/25 History
Disease/Condition
sertraline 100 mg tablet 100 mg PO HS Mental Health/Anxiety 07/06/25 09/10/25 History
Review of Systems
-
All other systems: Negative unless noted
Physical Exam
Vital Signs
Temp Pulse Resp BP Pulse Ox
98.9 F 67 23 104/57 99
09/11/25 05:00 09/11/25 07:05 09/11/25 08:00 09/11/25 07:00 09/11/25 08:00
Lab Results
09/11/25 03:43
Physical Exam
General: Well Developed, Well Nourished and No Apparent Distress
HEENT: Normocephalic
Respiratory: Clear and Non Labored Respirations
Cardiac: S1/S2 and Regular Rhythm
GI: Soft
Skin: Warm and Dry
Neuro: AO x 3
Psych: Calm
Impression / Plan
-
60-year-old female with past medical history of dyslipidemia, moderate to severe aortic stenosis now status post AVR with ascending aorta replacement postop day 1, rheumatoid arthritis who is here status post AVR.
AVR
- Continue routine postop care
- She is now extubated
- Incentive spirometry as able
- Out of bed to chair
Dyslipidemia continue atorvastatin
Hypertension
- Beta-nicki as able
Data Reviewed
-
EKG: Tracing Personally Visualized and interpreted (sr)
Medical Tests (Nuc Med, Echo etc): Report Reviewed by me
Labs: Labs Reviewed by me
Critical Care Time (in minutes): 31
[2025-09-11] MEDS: ROXICODONE 5 MG PO ×2 (08:48→13:50)
--- NOTE | 2025-09-11 09:37 | W.PN.ANS.POP ---
Anesthesia Post Operative
- Anesthesia Post Op Note
Vital Signs Stable-See Nursing Note: Yes
Airway Patent: Yes
Adequate Pain Control: Yes
Change in Mental Status: No
Current Postoperative Nausea & Vomiting: No
Anesthesia Complications: No
General Anesthetic Recall: No
Unplanned Admission: No
Post Op Hydration Adequate: Yes
[2025-09-11 10:05] LABS: Glucose - Point of Care 96 mg/dl (70-99)
--- NOTE | 2025-09-11 11:21 | PTCARENOTE ---
pt VSS, attempted to sit patient at side of bed w/ cardiac rehab, SBP dropped to 70s, c/o lightheadness and dizziness, placed back to bed. SBP recovered to 90-110s. and brother at bedside.
--- NOTE | 2025-09-11 11:25 | CM ---
Reviewed chart. Met with and Mrs. Rizo to review discharge plans. She states she is doing okay. We reviewed a home visit by the Transitional Care Nurse. She is agreeable to a home visit.Prior to admission she resides with her spouse in a two
story home. She has a full bathroom and bedroom on both levels. Prior to admission she was independent with ambulation and adls. She does not have any DME in the home. She has a prescription plan and uses mail order and [facility] when needed.
Her spouse states he will be home to assist in her care if needed. The discharge plan is to return home with her spouse and a home visit by the Transitional Care Nurse.
[2025-09-11 11:53] LABS: Glucose - Point of Care 91 mg/dl (70-99)
[2025-09-11] MEDS: NSS IV (12:06)
[2025-09-11 12:09] LABS: Hematocrit 23.3 % (37.0-47.0); Hemoglobin 8.0 g/dL (12.0-16.0); Mean Corp Hgb Conc. 34.3 g/dL (33.0-37.0); Mean Corpuscular Volume 91.0 fL (81.0-99.0); Platelet Count 93 10^3/uL (130-400); Red Cell Dist. Width 14.2 % (11.5-14.5)
[2025-09-11] MEDS: TYLENOL 975 MG PO ×2 (13:50→19:21)
[2025-09-11 14:08] LABS: Glucose - Point of Care 106 mg/dl (70-99)
--- NOTE | 2025-09-11 16:00 | PTCARENOTE ---
VSS. SCAFFOLD BUILDER aware of bladder scan, per SCAFFOLD BUILDER pt straight cath'd @~1235. 1 unit PRBC given as ordered. insulin gtt dc'd. L radial [place] dc'd as ordered, dressing c/d/i. Lasix given as ordered. OOB to chair w/ minimal assist. IS encouraged.
--- NOTE | 2025-09-11 19:00 | PTCARENOTE ---
Assume care of patient at 1900 from prior RN. Patient alert and oriented, Follow all commands OOB to chair, voiding at beside in commode. pulse presnet, trace edema in extremities. V Wires to pacer. Chest tube X 3, Right IJ cordis and Right hand
#20 PIV, , Lungs clear and diminished at bases. On room air, 93%, IS upto 750. Tolerating PO intake and medication without issue. Echo due on Wednesday. See worklist for more detail assessment data.
--- NOTE | 2025-09-11 19:18 | PTCARENOTE ---
pt voiding on BSC, IS encouraged. RA, 92-93% POX.
[2025-09-11] MEDS: REMOVE LIDOCAINE PATCH 1 PATCH REMOVE (19:24)
[2025-09-11] MEDS: LIPITOR 20 MG PO (22:20)
[2025-09-11] MEDS: FLEXERIL 5 MG PO (22:21)
--- NOTE | 2025-09-11 23:41 | PTCARENOTE ---
patient resting comfortably, PRN Fleeral given for discomfort. Vital sign stable. O2 sat 90 % on room air. Normal Sinus rhythm
[2025-09-12] VITALS (24 sets, daily range): BP systolic 85–133; BP diastolic 36–68; PULSE 69; O2SAT 99; BMI 30.1
[2025-09-12] MEDS: ROXICODONE 5 MG PO (01:01)
--- NOTE | 2025-09-12 03:55 | PTCARENOTE ---
patient up to bedside command voiding without issue, clear yellow urine. Returned to bed, ;labs drawn, VSS.
[2025-09-12 03:56] LABS: Hematocrit 25.0 % (37.0-47.0); Hemoglobin 8.6 g/dL (12.0-16.0); Mean Corp Hgb Conc. 34.4 g/dL (33.0-37.0); Mean Corpuscular Volume 91.6 fL (81.0-99.0); Platelet Count 75 10^3/uL (130-400); Red Cell Dist. Width 14.8 % (11.5-14.5)
[2025-09-12 04:46] LABS: Blood Urea Nitrogen 24 mg/dl (7-17); Calcium 8.4 mg/dl (8.4-10.2); Carbon Dioxide 30 mmol/L (22-30); Chloride 101 mmol/L (98-107); Estimated Creatinine Clearance 90 ml/min; Glucose 130 mg/dl (70-99); Magnesium 1.8 mg/dl (1.6-2.3); Potassium 3.3 mmol/L (3.5-5.1); Sodium 134 mmol/L (135-145); eGFR > 60.00
--- NOTE | 2025-09-12 06:07 | W.PN.CT ---
Today's Communication / Plan
-
-pod #2
-no issues overnight
-CT outputs: 2 meds 60/140, 1 med 40/85 in 12/24 hrs
-K 3.3- gave 40 kCL po
-follow platelets - 75K (80-93 on 09/11)
-encourage IS, OOB, ambulate
Assessment / Plan
-
- Bnsnxinj-ac-xprhgo / mod-severe AI/ Ascending aortic aneurysm (max ~4.7cm)- s/p AVR (#27 Inspiris Resilia); Ascending aortic replacement (28mm Hemashield Graft); Distal ascending aortic wrap; Lysis of pericardial adhesions (blunt, sharp,
electrocautery aided) by Dr. Bingham on 09/10/25, pod #2
- Intraop ANAYELI: normal biventricular function, well-seated AVR w/ trace PVL (small, smaller post-protamine), unchanged rfgb-ua-rhnflvnh MR, isoelectric sinus
- Becfqeko-dk-sejyoc aortic stenosis (P/M: 46/32)/ Qcmzvagc-yq-wizkmm aortic insufficiency
- Daiy-dp-einhonuu mitral regurgitation
- Eaneo-cn-ewbb tricuspid regurgitation
- Ascending aortic aneurysm (max ~4.7cm)
- Atypical CP
- Hx of idiopathic pericarditis - w/ isolated episode of PAF & effusion
- Rheumatoid arthritis
- Lupus
- Hyperlipidemia
- Membranous glomerulonephritis
- Irritable bowel syndrome
- Anxiety
- FHx of CAD - no sig CAD on preoperative cath
- Acute postop blood loss anemia - s/p 3 pRBCs
- Acute postop thrombocytopenia
- Acute postop atelectasis
- Acute postop hypovolemia with subsequent hypervolemia
Discussed patient care with: Nursing and Care Team
Subjective
-
Date of Service: September 12, 2025
Objective Data
-
Lab Results
09/12/25 03:31
09/12/25 03:31
PT 19.4 Sec (11.4-14.6) H 09/10/25 12:56
INR 1.62 09/10/25 12:56
APTT 39.9 Sec (23.4-35.0) H 09/10/25 12:56
Vital Signs
Vital Signs
Temp Pulse Resp BP Pulse Ox
98.1 F 66 21 107/64 100
09/12/25 03:00 09/12/25 03:00 09/12/25 03:00 09/12/25 03:00 09/12/25 03:00
CT Intake/Output/Weight
09/11/25 09/11/25 09/12/25
06:59 18:59 06:59
Intake Total 949.9 / 3185.5 623.4 / 943.4 320 / 943.4
Output Total 690 / 1535 2375 / 2750 375 / 2750
Balance 259.9 / 1650.5 -1751.6 / -1806.6 -55 / -1806.6
SaO2: 100
Physical Exam
-
General: Awake and AOx3
Cardiovascular: Regular rate & rhythm, No Murmurs and No Rub
Respiratory: Decreased Breath Sounds
Sternum: Stable
Incision: Clean, Dry and Intact
Extremities: Other (trace edema b/l)
Abdomen: soft, nontender, nondistended, + bowel sounds
Data Reviewed
-
Lab Results: Results Reviewed
Medications: Active Meds Reviewed
Chest X-Ray: Report Reviewed
CT Scan: Image Reviewed
ECG: Report Reviewed
[2025-09-12] MEDS: TYLENOL 975 MG PO ×3 (06:08→21:05)
[2025-09-12] MEDS: KCL 40 MEQ PO ×2 (06:10→12:28)
--- NOTE | 2025-09-12 08:00 | PTCARENOTE ---
pt received from previous RN, oriented, OOB in chair. SR on the monitor, HR 60-70s. V wire in place, box off. SBP 100-120s. palpable pulses. pt on RA 93-96%. lungs diminished in bases. IS encouraged. CTx3, no air leak or crepitus noted. pt abdomen
s/n, denies n/v. diet tolerated well. +BS, +flatus. voids. sternal Aquacel intact, old drainage. chest tube dressing intact. RIJ Cordis maintained. PIV. see worklist for VS, I&O, and assessment.
[2025-09-12] MEDS: LOW STRENGTH ASPIRIN 81 MG PO (08:38)
[2025-09-12] MEDS: NEURONTIN 100 MG PO ×3 (08:38→21:05)
[2025-09-12] MEDS: PROTONIX 40 MG PO (08:38)
[2025-09-12] MEDS: LASIX 40 MG IV (08:39)
[2025-09-12] MEDS: VITAMIN C 500 MG PO (08:39)
[2025-09-12] MEDS: FEOSOL 325 MG PO (08:39)
[2025-09-12] MEDS: PACERONE 200 MG PO ×3 (08:39→21:04)
[2025-09-12] MEDS: LOPRESSOR 12.5 MG PO ×2 (08:39→19:51)
[2025-09-12] MEDS: LIDOCAINE 4% PATCH 1 PATCH TOPICAL (08:39)
[2025-09-12] MEDS: SENOKOT 8.6 MG PO ×2 (08:39→19:50)
[2025-09-12] MEDS: MAGNESIUM OXIDE 400 MG PO (08:39)
[2025-09-12] MEDS: BACTROBAN 2% OINTMENT 1 APPLIC NASAL ×2 (08:40→19:51)
--- NOTE | 2025-09-12 10:26 | W.PN.CD ---
Addendum entered and electronically signed by Grant Perez MD 09/12/25 11:42:
I saw and evaluated the patient, and I provided the substantive portion of the medical decision making.
I reviewed and agree with the note by and it accurately reflects our care.
I personally performed the medical decision making of the this encounter and my assessment and plan is below:
Comment:
She is feeling well. Ambulating the halls without issue.
Exam is alert and oriented x 3, clear to auscultation bilaterally regular rate and rhythm normal S1-S2 trace edema peripherally.
Assessment:
ASD and ascending aortic aneurysm status post ascending aortic replacement with 28 mm Hemashield graft and AVR #27 Inspiris Resilia 09/10/2025: Progressing nicely postoperatively. Continue to ambulate. Continue to monitor telemetry which has been
normal. Aspirin and beta-nikci.
Hyperlipidemia: Continue statin
History of PAF in the setting of pericarditis: Not on telemetry,
Addendum entered and electronically signed by KATIA Wallace 09/12/25 11:25:
Post-op anemia has been noted and PRBC's administered per CT surgery team; follow
Hypokalemia noted and being replaced
Original Note:
Today's Communication / Plan
-
-Encourage IS (which I did) and ambulation as tolerated per protocol. Currently OOB to chair.
-continue BB, follow telemetry and BP's
Impression / Plan
-
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
aneurysm is now status post AVR with ascending aorta replacement.
Aortic stenosis, ascending aortic aneurysm:
-now s/p ascending aortic replacement (28mm Hemashield Graft), AVR (#27 Inspiris Resilia), Distal ascending aortic wrap, and lysis of pericardial adhesions, Dr. Bingham 09/10/25
-she seems to be recovering well and is OOB to chair. Pain controlled per patient.
-Tele and EKG SR
-intra-op ANAYELI: Normal biventricular systolic function with LVEF 60-65%. Mildly dilated left ventricle. Bicuspid aortic valve with mild to moderate stenosis and moderate to severe insufficiency. Mild mitral regurgitation. Mild tricuspid
regurgitation. Dilated ascending aorta with diameter 4.6 proximal to the right pulmonary artery. Grade III atheromatous disease is seen in the arch.
-on ASA and BB
Dyslipidemia:
-continue atorvastatin
Hx pericarditis/effusion:
-not active issue
Hx PAF in setting of pericarditis:
-not on OAC per her primary photovoltaic fabrication technician
Rheumatoid arthritis
Lupus
Physical Exam
Vital Signs/Labs
Vital Signs
Temp Pulse Resp BP Pulse Ox
98.7 F 73 21 89/36 93
09/12/25 07:56 09/12/25 09:44 09/12/25 09:00 09/12/25 09:44 09/12/25 09:34
09/11/25 09/12/25 09/13/25
06:59 06:59 06:59
Actual Weight 183 lb 3.266 oz 180 lb 15.992 oz
09/12/25 03:31
09/12/25 03:31
PT 19.4 Sec (11.4-14.6) H 09/10/25 12:56
INR 1.62 09/10/25 12:56
APTT 39.9 Sec (23.4-35.0) H 09/10/25 12:56
Magnesium 1.8 mg/dl (1.6-2.3) 09/12/25 03:31
Physical Exam
Constitutional: No acute distress
EENT: Anicteric
Cardiovascular: Rhythm & rate is regular
Respiratory: Respiratory effort normal and Lungs clear to auscul.
Neuro/Psych: AO x 3
Other: Skin (midsternal incision dressing CDI)
Data Reviewed
-
Date of Service: September 12, 2025
EKG: Tracing Personally Visualized and interpreted (SR) and Other (tele; SR)
Labs: Labs Reviewed by me
--- NOTE | 2025-09-12 10:31 | PTCARENOTE ---
pt ambulated in hallway w/ CR, placed back to bed. CTs dc'd as ordered. V wire insulated as ordered. pt ambulated to bathroom to void. oral hygiene performed. OOB in chair. IS encouraged.
[2025-09-12] MEDS: NSS 500 IV (12:28)
--- NOTE | 2025-09-12 12:30 | PTCARENOTE ---
pt VSS, no changes in assessment. OOB in chair for lunch, IS encouraged. pt ambulating in hallway w/ stand by assist. no c/o pain. voids in bathroom.
--- NOTE | 2025-09-12 15:06 | CM ---
Chart reviewed. Patient OOB sitting in the chair. Patient is independent of ADLS, lives with her in a 2 STH, 0 DME. Plan is for the patient to return home with CT Transitional RN. CM to follow
--- NOTE | 2025-09-12 16:00 | PTCARENOTE ---
pt VSS, no changes in assessment. pt ambulating in hallway w/ stand by assist. no c/o pain.
[2025-09-12] MEDS: LASIX 20 MG IV (16:56)
--- NOTE | 2025-09-12 17:20 | PTCARENOTE ---
BMP drawn, IV lasix 20mg IVP given. OOB in chair for dinner.
[2025-09-12 17:32] LABS: Blood Urea Nitrogen 23 mg/dl (7-17); Calcium 8.2 mg/dl (8.4-10.2); Carbon Dioxide 31 mmol/L (22-30); Chloride 103 mmol/L (98-107); Estimated Creatinine Clearance 89 ml/min; Glucose 120 mg/dl (70-99); Potassium 3.9 mmol/L (3.5-5.1); Sodium 132 mmol/L (135-145); eGFR > 60.00
[2025-09-12] MEDS: REMOVE LIDOCAINE PATCH 1 PATCH REMOVE (19:50)
--- NOTE | 2025-09-12 20:00 | PTCARENOTE ---
Patient received sitting in the chair, AAOx3 offers no complaints of pain. NSR on monitor, afebrile, blood pressure as documented. palpable pulses throughout, trace lower extremity edema noted. Lungs with fine crackles bibasilar, pulse ox 97% on
room air. able to pull 1000 on IS. Abdomen soft non tender with positive bowel sounds. Sternal dressing with small amount of old drainage. Chest tube sites with sutures intact. v wires insulated. #20 g in right hand flushed and patent. RIJ
Cordis. Plan of care discussed, call hoff within reach
[2025-09-12] MEDS: LIPITOR 20 MG PO (21:04)
--- NOTE | 2025-09-12 22:08 | PTCARENOTE ---
Assisted to the bathroom, voided clear yellow urine. Mouth care and CHG bath done. Assisted back to bed
[2025-09-13] VITALS (12 sets, daily range): BP systolic 87–132; BP diastolic 47–74; PULSE 64; O2SAT 100; BMI 29.9
--- NOTE | 2025-09-13 02:35 | W.PN.CT ---
Today's Communication / Plan
-
-pod #3
-no issues overnight
-CTs dcd 09/12
-Hg 7.6 today. No dizziness, BP has been low 90s-low 100s. Per Dr. Bingham, will give 1 pRBC today
-diuresed well with iv bid Lasix on 09/12 (UO 1050)
-Echo today
-follow platelets - 80k (75K on 09/12, 80-93 on 09/11)
-encourage IS, OOB, ambulate
-possible d/c soon
Assessment / Plan
-
- Mbvlobgx-zx-wmrmgg / mod-severe AI/ Ascending aortic aneurysm (max ~4.7cm)- s/p AVR (#27 Inspiris Resilia); Ascending aortic replacement (28mm Hemashield Graft); Distal ascending aortic wrap; Lysis of pericardial adhesions (blunt, sharp,
electrocautery aided) by Dr. Bingham on 09/10/25, pod #3
- Intraop ANAYELI: normal biventricular function, well-seated AVR w/ trace PVL (small, smaller post-protamine), unchanged bjgn-fc-lgorbagq MR, isoelectric sinus
- Kyodrcne-lh-nobicl aortic stenosis (P/M: 46/32)/ Bclicczz-dr-hkfoww aortic insufficiency
- Tmwp-ve-dsusycjo mitral regurgitation
- Jqczj-ka-ixbb tricuspid regurgitation
- Ascending aortic aneurysm (max ~4.7cm)
- Atypical CP
- Hx of idiopathic pericarditis - w/ isolated episode of PAF & effusion
- Rheumatoid arthritis
- Lupus
- Hyperlipidemia
- Membranous glomerulonephritis
- Irritable bowel syndrome
- Anxiety
- FHx of CAD - no sig CAD on preoperative cath
- Acute postop blood loss anemia - s/p total 5 pRBCs
- Acute postop thrombocytopenia
- Acute postop atelectasis
- Acute postop hypovolemia with subsequent hypervolemia
Discussed patient care with: Nursing and Care Team
Subjective
-
Date of Service: September 13, 2025
Objective Data
-
PT 19.4 Sec (11.4-14.6) H 09/10/25 12:56
INR 1.62 09/10/25 12:56
APTT 39.9 Sec (23.4-35.0) H 09/10/25 12:56
Vital Signs
Vital Signs
Temp Pulse Resp BP Pulse Ox
97.6 F 67 18 96/50 92
09/13/25 00:00 09/13/25 00:00 09/12/25 15:20 09/12/25 23:53 09/13/25 00:00
CT Intake/Output/Weight
09/12/25 09/12/25 09/13/25
06:59 18:59 06:59
Intake Total 460 / 1083.4 260 / 260
Output Total 395 / 2770 1065 / 1265 200 / 1265
Balance 65 / -1686.6 -805 / -1005 -200 / -1005
SaO2: 92
Physical Exam
-
General: Awake and AOx3
Cardiovascular: Regular rate & rhythm, No Murmurs and No Rub
Respiratory: Decreased Breath Sounds
Sternum: Stable
Incision: Clean, Dry and Intact
Abdomen: soft, nontender, nondistended, + bowel sounds
Extremities: Other (trace edema b/l)
Data Reviewed
-
Lab Results: Results Reviewed
Medications: Active Meds Reviewed
Chest X-Ray: Report Reviewed and Image Reviewed
ECG: Report Reviewed and Image Reviewed
--- NOTE | 2025-09-13 04:05 | PTCARENOTE ---
Patient reassessed, offers no complaints, labs sent
[2025-09-13 04:16] LABS: Hematocrit 22.0 % (37.0-47.0); Hemoglobin 7.6 g/dL (12.0-16.0); Mean Corp Hgb Conc. 34.5 g/dL (33.0-37.0); Mean Corpuscular Volume 91.7 fL (81.0-99.0); Platelet Count 80 10^3/uL (130-400); Red Cell Dist. Width 14.3 % (11.5-14.5)
[2025-09-13 04:38] LABS: Blood Urea Nitrogen 22 mg/dl (7-17); Calcium 8.0 mg/dl (8.4-10.2); Carbon Dioxide 32 mmol/L (22-30); Chloride 104 mmol/L (98-107); Estimated Creatinine Clearance 104 ml/min; Glucose 107 mg/dl (70-99); Magnesium 2.0 mg/dl (1.6-2.3); Potassium 3.3 mmol/L (3.5-5.1); Sodium 137 mmol/L (135-145); eGFR > 60.00
[2025-09-13] MEDS: TYLENOL 975 MG PO ×3 (05:33→21:09)
[2025-09-13] MEDS: KCL 40 MEQ PO (05:33)
--- NOTE | 2025-09-13 08:00 | PTCARENOTE ---
received patient at change of shift from previous RN. pt OOB in chair. AAOX3. standby assist to stand and ambulate. pt reports pain well controlled at this time, 02/01. lidocaine patch applied to chest. SR on telemetry heart rate 60s. v wire
insulated. pulses palpable. trace edema in lower extremities. pt on room air, sat 98%. lung sounds diminished in bases. active bowel sounds, pt states has not had bowel movement but is passing gas. tolerating diet. voiding in bathroom clear yellow
urine. surgical sites CDI. Right IJ cordis infusing KVO. type and screen ordered and drawn.
[2025-09-13] MEDS: PROTONIX 40 MG PO (08:35)
[2025-09-13] MEDS: FEOSOL 325 MG PO (08:35)
[2025-09-13] MEDS: PACERONE 200 MG PO ×3 (08:35→21:10)
[2025-09-13] MEDS: VITAMIN C 500 MG PO (08:35)
[2025-09-13] MEDS: NEURONTIN 100 MG PO ×3 (08:35→21:09)
[2025-09-13] MEDS: SENOKOT 8.6 MG PO ×2 (08:35→19:57)
[2025-09-13] MEDS: LIDOCAINE 4% PATCH 1 PATCH TOPICAL (08:36)
[2025-09-13] MEDS: BACTROBAN 2% OINTMENT 1 APPLIC NASAL ×2 (08:36→19:58)
[2025-09-13] MEDS: LOPRESSOR PO (09:16)
[2025-09-13] MEDS: LOW STRENGTH ASPIRIN 81 MG PO (09:27)
--- NOTE | 2025-09-13 12:00 | PTCARENOTE ---
Assumed care of patient at 1100, received report from prior RN. Nursing assessment completed and as documented. NSR on monitor, denies pain at this time. V wire in place but disconnected from box. Sternal wound dressing intact with small drainage,
substernal CT sites with dressing in place - see WOC documentation. Patient in chair, PRBC infusing via right IJ cordis, completed unit and documented on pink transfusion form. VSS and without s/sx of reaction. Patient worked with cardiac rehab,
ambulated in halls and the stairs - tolerated. Patient back into chair for lunch, family at bedside, NSS infusing at 10ml/hr via R IJ cordis line. PIV in L hand patent and in place. VSS, call hoff within reach, care ongoing.
[2025-09-13] MEDS: NSS IV (13:58)
--- NOTE | 2025-09-13 14:21 | CM ---
Chart reviewed. Patient OOB ambulating the halls and said she did the stairs today. Patient is independent of ADLS, lives with her in a 2 STH, 0 DONNA, 0 DME. Plan is for the patient to return home with CT Transitional RN. CM to follow
--- NOTE | 2025-09-13 18:16 | W.PN.CD ---
Today's Communication / Plan
-
trend Hb/Plt
Impression / Plan
-
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
aneurysm is now status post AVR with ascending aorta replacement.
Aortic stenosis, ascending aortic aneurysm:
-now s/p ascending aortic replacement (28mm Hemashield Graft), AVR (#27 Inspiris Resilia), Distal ascending aortic wrap, and lysis of pericardial adhesions, Dr. Bingham 09/10/25
-TTE today with normal EF and valve
-she seems to be recovering well and is OOB to chair. Pain controlled per patient.
-Tele and EKG SR
-intra-op ANAYELI: Normal biventricular systolic function with LVEF 60-65%. Mildly dilated left ventricle. Bicuspid aortic valve with mild to moderate stenosis and moderate to severe insufficiency. Mild mitral regurgitation. Mild tricuspid
regurgitation. Dilated ascending aorta with diameter 4.6 proximal to the right pulmonary artery. Grade III atheromatous disease is seen in the arch.
-on ASA and BB
-cordis still in
Anemia/Thrombocytopenia
-blood given today
-cont. to closely monitor counts
-no clinical bleeding, no effusion on echo
Dyslipidemia:
-continue atorvastatin
Hx pericarditis/effusion:
-not active issue
Hx PAF in setting of pericarditis:
-not on OAC per her primary export coordinator
Rheumatoid arthritis
Lupus
TTE 09/13/2025
SUMMARY
1. Normal biventricular size and function without regional wall motion normalities.
2. LVEF is 60-65% by visual estimation.
3. S/p Quiros Inspiris Resilia 27 mm AVR. Well-seated normally functioning mean gradient 5 mmHg. No significant regurgitation.
4. Mild to moderate tricuspid regurgitation. Top normal estimated PASP at 39 mmHg.
5. Compared to prior from 06/22/2025, now status post AVR and ascending aorta replacement.
Physical Exam
Vital Signs/Labs
Vital Signs
Temp Pulse Resp BP Pulse Ox
36.8 C 70 20 113/54 98
09/13/25 15:12 09/13/25 16:30 09/13/25 15:12 09/13/25 15:12 09/13/25 15:12
09/12/25 09/13/25 09/14/25
06:59 06:59 06:59
Actual Weight 82.1 kg 81.6 kg
09/13/25 04:00
09/13/25 04:00
PT 19.4 Sec (11.4-14.6) H 09/10/25 12:56
INR 1.62 09/10/25 12:56
APTT 39.9 Sec (23.4-35.0) H 09/10/25 12:56
Magnesium 2.0 mg/dl (1.6-2.3) 09/13/25 04:00
Physical Exam
Constitutional: Comfortable
Cardiovascular: Rhythm & rate is regular
Respiratory: Respiratory effort normal
Neuro/Psych: AO x 3
Data Reviewed
-
Date of Service: September 13, 2025
Medical Decision Making: Reviewed Test Results
Labs: Labs Reviewed by me
[2025-09-13] MEDS: REMOVE LIDOCAINE PATCH 1 PATCH REMOVE (19:57)
[2025-09-13] MEDS: LOPRESSOR 12.5 MG PO (19:57)
--- NOTE | 2025-09-13 20:00 | PTCARENOTE ---
Assumed care of patient at 1900. Patient found oob in chair at time of assessment. Patient is AOx4, follows commands appropriately, moves all extremities. Lung sounds are clear and equal bilaterally, saO2 99% on RA. Heart sounds are audible, patient
is SR on the monitor, normal palpable pulses, no observable edema. Patient has active BS in all four quadrants, pending BM, voiding in bathroom. There is a sternal incision with aquacell dressing small amount of old drainage, ABD dressing over CT
wounds CDI. R IJ cordis receiving KVO and 18G R Hand. VSS. No c/o pain. Call hoff within reach.
[2025-09-13] MEDS: ZOLOFT 100 MG PO (21:09)
[2025-09-13] MEDS: LIPITOR 20 MG PO (21:10)
--- NOTE | 2025-09-14 | PTCARENOTE ---
Patient reassessed. VSS. No c/o pain. Remains SR on the monitor.
[2025-09-14 03:21] VITALS: BP 122/74
[2025-09-14 04:21] LABS: Hematocrit 27.9 % (37.0-47.0); Hemoglobin 9.3 g/dL (12.0-16.0); Mean Corp Hgb Conc. 33.3 g/dL (33.0-37.0); Mean Corpuscular Volume 90.0 fL (81.0-99.0); Platelet Count 97 10^3/uL (130-400); Red Cell Dist. Width 14.9 % (11.5-14.5)
[2025-09-14 04:42] LABS: Blood Urea Nitrogen 11 mg/dl (7-17); Calcium 8.1 mg/dl (8.4-10.2); Carbon Dioxide 29 mmol/L (22-30); Chloride 104 mmol/L (98-107); Estimated Creatinine Clearance 104 ml/min; Glucose 102 mg/dl (70-99); Magnesium 2.1 mg/dl (1.6-2.3); Potassium 3.9 mmol/L (3.5-5.1); Sodium 135 mmol/L (135-145); eGFR > 60.00
[2025-09-14 06:00] VITALS: BMI 30.3
[2025-09-14] MEDS: TYLENOL 975 MG PO (06:41)
--- NOTE | 2025-09-14 06:58 | W.PN.CT ---
Today's Communication / Plan
-
-pod #4
-no issues overnight, feels well, no complaints, wants to go home
-got 1 pRBC on 09/13 for Hg 7.6. Hg today 9.3
-weaned off O2
-Cordis dcd
-follow 2v-CXR today
-Echo 09/13 with well-seated normally functioning AV, mean gradient 5 mmHg. No significant regurgitation. EF 60-65%. Mild to moderate tricuspid regurgitation. Top normal estimated PASP at 39 mmHg.
-d/c pacing wire prior to discharge
-ambulate
-likely d/c home
Assessment / Plan
-
- Hdciowlz-xn-euwrsq / mod-severe AI/ Ascending aortic aneurysm (max ~4.7cm)- s/p AVR (#27 Inspiris Resilia); Ascending aortic replacement (28mm Hemashield Graft); Distal ascending aortic wrap; Lysis of pericardial adhesions (blunt, sharp,
electrocautery aided) by Dr. Bingham on 09/10/25, pod #4
- Intraop ANAYELI: normal biventricular function, well-seated AVR w/ trace PVL (small, smaller post-protamine), unchanged wfjr-wj-uwpagcer MR, isoelectric sinus
- Drepowlp-qw-eduiko aortic stenosis (P/M: 46/32)/ Nutamjqo-bp-ysciia aortic insufficiency
- Icym-wc-jrnkcbfj mitral regurgitation
- Zfqka-tk-qdvx tricuspid regurgitation
- Ascending aortic aneurysm (max ~4.7cm)
- Atypical CP
- Hx of idiopathic pericarditis - w/ isolated episode of PAF & effusion
- Rheumatoid arthritis
- Lupus
- Hyperlipidemia
- Membranous glomerulonephritis
- Irritable bowel syndrome
- Anxiety
- FHx of CAD - no sig CAD on preoperative cath
- Acute postop blood loss anemia - s/p total 5 pRBCs
- Acute postop thrombocytopenia
- Acute postop atelectasis
- Acute postop hypovolemia with subsequent hypervolemia
- Echo 09/13/25:
1. Normal biventricular size and function without regional wall motion normalities.
2. LVEF is 60-65% by visual estimation.
3. S/p Quiros Amauryiris Resilia 27 mm AVR. Well-seated normally functioning mean gradient 5 mmHg. No significant regurgitation.
4. Mild to moderate tricuspid regurgitation. Top normal estimated PASP at 39 mmHg.
5. Compared to prior from 06/22/2025, now status post AVR and ascending aorta replacement.
Discussed patient care with: Nursing and Care Team
Subjective
-
Date of Service: September 14, 2025
Objective Data
-
PT 19.4 Sec (11.4-14.6) H 09/10/25 12:56
INR 1.62 09/10/25 12:56
APTT 39.9 Sec (23.4-35.0) H 09/10/25 12:56
Vital Signs
Vital Signs
Temp Pulse Resp BP Pulse Ox
97.5 F 61 18 102/59 91
09/13/25 23:00 09/14/25 00:00 09/13/25 23:00 09/13/25 23:05 09/13/25 23:05
CT Intake/Output/Weight
09/13/25 09/13/25 09/14/25
06:59 18:59 06:59
Intake Total 600 / 640 40 / 640
Output Total 400 / 1465 650 / 850 200 / 850
Balance -400 / -1205 -50 / -210 -160 / -210
SaO2: 91
Physical Exam
-
General: Awake and AOx3
Cardiovascular: Regular rate & rhythm, No Murmurs and No Rub
Respiratory: Clear and Decreased Breath Sounds
Sternum: Stable
Incision: Clean, Dry and Intact
Extremities: Other (trace edema b/l)
Abdomen: soft, nontender, nondistended, + bowel sounds
Data Reviewed
-
Lab Results: Results Reviewed
Medications: Active Meds Reviewed
Chest X-Ray: Report Reviewed and Image Reviewed
ECG: Report Reviewed and Image Reviewed
--- NOTE | 2025-09-14 07:43 | PTCARENOTE ---
Patient reassessed. VSS. Sarahi gomez AM labs obtained. Call hoff within reach.
--- NOTE | 2025-09-14 08:21 | W.DCSUMMARY ---
Discharge Summary
Discharge Data
Date of Admission: 09/10/25
Date of Discharge: 09/14/25
-
Pending Results: No
Hospital Course
Primary care physician: Nataly Rowe
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
Inpatient consultants: [facility], pulmonary asbestos coverer
Procedures:
1. aortic valve replacement , ascending aortic replacement
Primary Diagnosis:
1. ascending aortic aneurysm (4.7cm), aortic stenosis
Secondary Diagnoses:
1. Hx of idiopathic pericarditis - w/ isolated episode of PAF & effusion
2. Rheumatoid arthritis
3. Lupus
4. Hyperlipidemia
5. Membranous glomerulonephritis
6. Irritable bowel syndrome
7. Anxiety
8. PAF no AC d/t idiopathic pericarditis
9. Hypertension
10. membranous nephropathy
- Acute postop blood loss anemia - s/p total 5 pRBCs
- Acute postop thrombocytopenia
- Acute postop atelectasis
- Acute postop hypovolemia with subsequent hypervolemia
- Acute postop pulmonary insufficiency
HPI: 60 year old female with ascending aortic aneurysm and aortic stenosis was electively admitted for ascending aortic aneurysm and aortic valve replacement
Hospital course: Patijs mejia taken to the operating room and underwent an AVR (#27 Inspiris Resilia), Ascending aortic replacement (28mm Hemashield Graft), and distal ascending aortic wrap by Dr. Festus Bingham. . Patient received 2PRBC intraop and
returned to CVICU on Levophed, Precedex, and Insulin. She received 1L lactated ringers and 500cc 5% albumin for postop hypovolemia. She received an additional 2 units PRBC on POD #1 for a hemoglobin of 7.8. Patient was later diuresed. Chest tubes
were removed on POD #2. Patient was transfused 1PRBC for a hemoglobin of 7.6 on POD #3. The follow-up TTE on 09/13/25 reported an EF of 60-65%, AV mean 5mmHg, and mild-mod TR. Patient ambulated in halls and completed steps with cardiac rehab. No
post-op dysrhythmias noted and no prophylactic Amiodarone ordered on discharge. Temporary Bipolar ventricular wire clipped to skinlevel. Labs on day if discharge: WBC 7.6; Hb 9.3; Plt 97k (from 80k); Na+ 135; K+ 3.9; creat 0.5. Patient stable for
discharge to home and will be followed by transitional nurse team.
Home medication changes:
Toprol tartrate 6.25mg daily tapered up to Toprol XL 25mg daily on discharge
Discharge Plan
-
Patient Disposition: Home (Routine Discharge)
Discharge Diagnosis/Procedures: aortic valve replacement and ascending aorta replacement (09/10/25)
Condition: Good
Diet: Low Cholesterol and Restrict fluids to 64 oz
Activity: No strenuous activity
Driving Restrictions: Not until seen by your Dr
Bathing Restrictions: OK to Shower
Blood Work: CBC in 1 week
Other Services: Cardiac Rehab
Specialty Instructions: Weigh Daily- Call MD for wt gain/loss 3 lbs overnight/5 lbs in 1 week
Activity Restrictions/Additional Instructions:
Please call to make appointments for Phase II Cardiac Rehab:
1) [facility]: [phone]
[facility]: [phone]
[facility]: [phone]
2) [facility]: [phone]
ACTIVITY:
-No strenuous activity: no heavy lifting, pushing, pulling anything over 15 pounds for one month
-continue to use stairs as tolerated
DRIVING RESTRICTIONS:
-No driving for one month or until approved by your surgeon
WOUND CARE:
-Shower daily. Use soap & water.
-No lotions, creams or powders on incision area.
DIET:
-continue a low fat/low cholesterol diet.
-IF you are diabetic, continue carb controlled diet.
CARDIAC REHAB:
-Please make appointment to start in 5-6 weeks with your local hospital program. (See Cardiac Rehabilitation Discharge Booklet).
SPECIALTY INSTRUCTIONS:
-Weigh yourself daily. Call your physician for any weight gain/loss of 3 lbs overnight or 5 lbs in one week.
-REPORT any clicking noise or uneven appearance of your sternum to your surgeon immediately.
-If you smoke, you are instructed to quit. The CT smoking hotline phone number is [phone]
Referrals:
CT Transitional Care Nurse [Outside] - in one to two days
Referral Note:
The Cardiothoracic Transitional Care Nurse will call you to set up a visit in 1-2 days.
Melinda Yañez CRNP [Specified Professional Personl, Cardiology] - 10/16/25 9:00 am
Festus Bingham MD [Active, Cardiac Surgery] - 10/09/25 2:00 pm
Nataly Rowe CRNP [Family Provider] - in four to six weeks
Referral Note: Please make an appointment in four to six weeks.
Additional Discharge Medication Instructions: Metoprolol dose increased to 25mg daily
Prescriptions:
New
cyclobenzaprine 10 mg Tablet
5 mg PO Q8HPRN PRN (Reason: muscle spasm) Qty: 10 0RF
ferrous sulfate [FeroSul] 325 mg (65 mg iron) Tablet
325 mg PO DAILY Qty: 30 0RF
gabapentin 100 mg Capsule
100 mg PO TID Qty: 30 0RF
oxycodone 5 mg Tablet
5 mg PO Q4HPRN PRN (Reason: severe pain) Qty: 10 0RF
metoprolol succinate [Toprol XL] 25 mg tablet extended release 24 hr
25 mg PO DAILY Qty: 30 2RF
Continued
atorvastatin 20 MG tablet
20 mg PO HS
aspirin 81 MG tablet,delayed release (DR/EC)
81 mg PO DAILY
hydroxychloroquine 200 MG tablet
200 mg PO BID
colchicine 0.6 MG tablet
0.6 mg PO BID
cholecalciferol (vitamin D3) 2,000 UNITS tablet
2,000 units PO DAILY
sertraline 100 mg Tablet
100 mg PO HS
folic acid 1 mg Tablet
1 mg PO HS
Benlysta 200 mg/mL Syringe
200 mg SC QMONTH
Discontinued
metoprolol tartrate 25 mg Tablet
6.25 mg PO HS
Discharge Orders:
Discharge Patient (As Directed); Ordered 09/14/25
Ordered By: Rose Burns
Care Plan Goals
Care Plan Goals:
Problem: Readiness for enhanced knowledge related to diagnosis and treatment plan
Goal: Understand your diagnosis and treatment plan needs, including medications if applicable.
Instructions: Know your diagnosis, underlying causes and treatment plan options, including medications if applicable. Consult with your health care team to learn about your diagnosis and treatment plan, including medications if applicable.
Discharge Date and Time
Print Language: BURKINAN
[2025-09-14 08:22] VITALS: BP 114/60
--- NOTE | 2025-09-14 08:36 | W.PN.CD ---
Today's Communication / Plan
-
D/c today
Impression / Plan
-
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
aneurysm is now status post AVR with ascending aorta replacement.
Aortic stenosis, ascending aortic aneurysm:
-now s/p ascending aortic replacement (28mm Hemashield Graft), AVR (#27 Inspiris Resilia), Distal ascending aortic wrap, and lysis of pericardial adhesions, Dr. Bingham 09/10/25
-TTE today with normal EF and valve
-she is doing well OOB and ambulating
-Tele and EKG SR
-intra-op ANAYELI: Normal biventricular systolic function with LVEF 60-65%. Mildly dilated left ventricle. Bicuspid aortic valve with mild to moderate stenosis and moderate to severe insufficiency. Mild mitral regurgitation. Mild tricuspid
regurgitation. Dilated ascending aorta with diameter 4.6 proximal to the right pulmonary artery. Grade III atheromatous disease is seen in the arch.
-on ASA and BB
Anemia/Thrombocytopenia
-improved after pRBCS
Dyslipidemia:
-continue atorvastatin
Hx pericarditis/effusion:
-not active issue
Hx PAF in setting of pericarditis:
-not on OAC per her primary med specialist
Rheumatoid arthritis
Lupus
TTE 09/13/2025
SUMMARY
1. Normal biventricular size and function without regional wall motion normalities.
2. LVEF is 60-65% by visual estimation.
3. S/p Quiros Inspiris Resilia 27 mm AVR. Well-seated normally functioning mean gradient 5 mmHg. No significant regurgitation.
4. Mild to moderate tricuspid regurgitation. Top normal estimated PASP at 39 mmHg.
5. Compared to prior from 06/22/2025, now status post AVR and ascending aorta replacement.
Physical Exam
Vital Signs/Labs
Vital Signs
Temp Pulse Resp BP Pulse Ox
98.1 F 72 17 114/60 98
09/14/25 08:31 09/14/25 08:31 09/14/25 08:31 09/14/25 08:22 09/14/25 08:32
09/13/25 09/14/25 09/15/25
06:59 06:59 06:59
Actual Weight 179 lb 14.355 oz 182 lb 5.156 oz
09/14/25 03:42
09/14/25 03:42
PT 19.4 Sec (11.4-14.6) H 09/10/25 12:56
INR 1.62 09/10/25 12:56
APTT 39.9 Sec (23.4-35.0) H 09/10/25 12:56
Magnesium 2.1 mg/dl (1.6-2.3) 09/14/25 03:42
Physical Exam
Constitutional: No acute distress and Comfortable
EENT: Anicteric
Cardiovascular: Rhythm & rate is regular
Respiratory: Respiratory effort normal and Lungs clear to auscul.
GI: Soft
Neuro/Psych: AO x 3
Data Reviewed
-
Date of Service: September 14, 2025
Medical Decision Making: Reviewed Test Results
EKG: Tracing Personally Visualized and interpreted (sr)
Echo: Report Reviewed by me
Labs: Labs Reviewed by me
[2025-09-14] MEDS: LIDOCAINE 4% PATCH TOPICAL (08:42)
[2025-09-14] MEDS: BACTROBAN 2% OINTMENT 1 APPLIC NASAL (08:50)
[2025-09-14] MEDS: NEURONTIN 100 MG PO (08:51)
[2025-09-14] MEDS: VITAMIN C 500 MG PO (08:51)
[2025-09-14] MEDS: PROTONIX 40 MG PO (08:51)
[2025-09-14] MEDS: LOW STRENGTH ASPIRIN 81 MG PO (08:51)
[2025-09-14] MEDS: PACERONE 200 MG PO (08:51)
[2025-09-14] MEDS: LOPRESSOR 12.5 MG PO (08:51)
[2025-09-14] MEDS: FEOSOL 325 MG PO (08:51)
[2025-09-14] MEDS: SENOKOT 8.6 MG PO (08:52)
--- NOTE | 2025-09-14 08:58 | PTCARENOTE ---
Patient received from material handler 2nd shift resting in bed, AAO X 3, states pain controlled at this time. NSR via cm, SaO2 @ 98% on RA. All procedural sites stable. Epicardial pacing wire, insulated to chest wall. Patient assisted to bathroom, voided, +BM, am
care performed. Settled to chair. Patient updated to plan of care for the day, including possible d/c home, in agreement. See work list for full assessment and interventions performed.
[2025-09-14] MEDS: NSS IV (09:00)
--- NOTE | 2025-09-14 09:58 | W.PN.UPDATE ---
Update Note
Progress Note Update
No pacing required, bi-polar V-wire clipped to skin level.
--- NOTE | 2025-09-14 10:03 | PTCARENOTE ---
Patient settled to bed. Epicardial pacing wire cut by ANABELLA Burns, patient tolerated well.
[2025-09-14 10:44] VITALS: BP 132/69
[2025-09-14 10:45] VITALS: BP 129/73
[2025-09-14 10:46] VITALS: BP 129/73
--- NOTE | 2025-09-14 11:46 | CM ---
Chart reviewed. Patient independent of ADLS, lives with her in a 2 STH, 0 DONNA, 0 DME. Plan is for the patient to return home with CT Transitional RN. CM to follow
--- NOTE | 2025-09-14 13:19 | PTCARENOTE ---
Assumed care of patient at 1100, received report from RN. Patient ready for discharge and awaiting orders. Assisted patient to shower once discharge orders placed, IV and telemetry removed at this time. Patient showered in chair without difficulty.
Patient dressed self with assist from family at bedside. Discharge instructions reviewed, all questions answered at this time, and paperwork signed. Transported patient via WC accompanied by family and transporter to private vehicle.
== END 2025-09-14 13:19 | disposition home or self-care (01) | DRG 219 ==
LOC: CVICU 04:55
PROVIDERS: Anesthesiology; Clinical Nurse Specialist Acute Care; Nurse Practitioner; Physician Assistant Medical; ADMITTING PHYSICIAN Thoracic Surgery (Cardiothoracic Vascular Surgery); CONSULT PHYSICIAN Internal Medicine; OTHER PHYSICIAN Internal Medicine Cardiovascular Disease
PROC: 02UX0JZ Supplement Thoracic Aorta, Ascending/Arch with Synthetic Substitute, Open Approach (ICD-10-PCS; 2025-09-10)
PROC: 30233N1 Transfusion of Nonautologous Red Blood Cells into Peripheral Vein, Percutaneous Approach (ICD-10-PCS; 2025-09-10)
PROC: 02RF08Z Replacement of Aortic Valve with Zooplastic Tissue, Open Approach (ICD-10-PCS; 2025-09-10)
PROC: B24BZZ4 Ultrasonography of Heart with Aorta, Transesophageal (ICD-10-PCS; 2025-09-10)
PROC: 5A1221Z Performance of Cardiac Output, Continuous (ICD-10-PCS; 2025-09-10)
PROC: 02RX0JZ Replacement of Thoracic Aorta, Ascending/Arch with Synthetic Substitute, Open Approach (ICD-10-PCS; 2025-09-10)
PROC: 02NN0ZZ Release Pericardium, Open Approach (ICD-10-PCS; 2025-09-10)
DX: I08.3 Combined rheumatic disorders of mitral, aortic and tricuspid valves (principal); J95.1 Acute pulmonary insufficiency following thoracic surgery; D62 Acute posthemorrhagic anemia; I31.0 Chronic adhesive pericarditis; N05.2 Unspecified nephritic syndrome with diffuse membranous glomerulonephritis; J98.11 Atelectasis; I71.21 Aneurysm of the ascending aorta, without rupture; D69.59 Other secondary thrombocytopenia; E86.1 Hypovolemia; E87.70 Fluid overload, unspecified; E87.6 Hypokalemia; I48.0 Paroxysmal atrial fibrillation; M06.9 Rheumatoid arthritis, unspecified; E78.00 Pure hypercholesterolemia, unspecified; K58.9 Irritable bowel syndrome, unspecified; F41.9 Anxiety disorder, unspecified; M32.9 Systemic lupus erythematosus, unspecified; M10.9 Gout, unspecified; K21.9 Gastro-esophageal reflux disease without esophagitis; I10 Essential (primary) hypertension; Y83.8 Other surgical procedures as the cause of abnormal reaction of the patient, or of later complication, without mention of misadventure at the time of the procedure; Z82.49 Family history of ischemic heart disease and other diseases of the circulatory system
CPT/HCPCS: 36415; 71045; 71046; 80048; 80053; 81003; 81015; 82248; 82330; 82565; 82805; 82810; 82947; 82962; 83036; 83735; 84132; 84302; 84520; 85014; 85018; 85025; 85027; 85049; 85610; 85730; 86850; 86900; 86901; 86920; 87070; 88305; 88311; 93005; 93308; 93312; 93320; 93321; 93325; 93880; 94002; P9016; P9045